=== PATIENT | female | born 1980 | race Caucasian/White ===

== ENCOUNTER 2016-10-06 10:03 | Inpatient (IN) | payer SELFPAY ==
[~2016-10-06] VITALS: Ht 160 cm; Wt 106.7 kg
[2016-10-06] MEDS ORDERED: ASPIRIN 325 MG TABLET PO ONE (10:30)
--- NOTE | 2016-10-06 10:38 | PHYS DOC ---
Past Medical History Past Medical History: Depression, Hypertension, Other Additional Past Medical Histor: ovarian cyst Past Surgical History: Cholecystectomy Alcohol Use: Rarely Drug Use: None Adult General Chief Complaint Chief Complaint: CHEST PAIN HPI HPI Patient is a 36 year old female presents to the emergency department with a history of being seen at [facility] for allergic reaction. Patient states that she developed midsternal chest pain with no radiation of pain. Patient states it is like a brick sitting on my chest. Patient states she has had nausea and vomiting. Patient continue to state she has a history of HTN does not take medication and does not have a doctor as she does not have insurance. Patient denies diaphoresis. Review of Systems Review of Systems Constitutional: Denies fever or chills [] Eyes: Denies change in visual acuity, redness, or eye pain [] HENT: Denies nasal congestion or sore throat [] Respiratory: Denies cough or shortness of breath [] Cardiovascular: No additional information not addressed in HPI [] GI: Denies abdominal pain, bloody stools or diarrhea. C/o nausea and vomiting : Denies dysuria or hematuria [] Musculoskeletal: Denies back pain or joint pain [] Integument: Denies rash or skin lesions [] Neurologic: Denies headache, focal weakness or sensory changes [] Endocrine: Denies polyuria or polydipsia [] Current Medications Current Medications Current Medications Medications (Trade) Dose Ordered Sig/Scarlet Start Time Stop Time Status Last Admin Dose Admin Aspirin (Jaelyn Aspirin) 325 mg 1X ONCE 10/06/16 10:30 10/06/16 10:31 DC 10/06/16 10:39 325 MG Info (Do NOT chart on this entry -- for MONITORING) 1 each PRN DAILY PRN 10/06/16 12:30 10/08/16 12:29 Iohexol (Omnipaque 300 Mg/ml) 75 ml 1X ONCE 10/06/16 12:30 10/06/16 12:31 DC 10/06/16 13:27 75 ML Morphine Sulfate 4 mg 1X ONCE 10/06/16 12:15 10/06/16 12:16 DC 10/06/16 13:11 4 MG Nitroglycerin (Nitrostat) 0.4 mg PRN Q5MIN PRN 10/06/16 10:30 10/06/16 10:56 0.4 MG Allergies Allergies Allergies Coded Allergies Type Severity Reaction Last Updated Verified tetanus and diphtheria toxoids Allergy Intermediate Swelling. 10/06/16 Yes Physical Exam Physical Exam Constitutional: Well developed, well nourished, no acute distress, non-toxic appearance. [] HENT: Normocephalic, atraumatic, bilateral external ears normal, oropharynx moist, no oral exudates, nose normal. [] Eyes: PERRLA, EOMI, conjunctiva normal, no discharge. [] Neck: Normal range of motion, no tenderness, supple, no stridor. [] Cardiovascular:Heart rate regular rhythm, no murmur [] Lungs & Thorax: Bilateral breath sounds clear to auscultation [] Abdomen: Bowel sounds normal, soft, no tenderness, no masses, no pulsatile masses. [] Skin: Warm, dry, no erythema, no rash. [] Back: No tenderness Extremities: No tenderness, no cyanosis, no clubbing, ROM intact, no edema. Peripheral pulses 2+ cap refill brisk < 2 seconds. Neurologic: Alert and oriented X 3, normal motor function, normal sensory function, no focal deficits noted. [] Psychologic: Affect normal, judgement normal, mood normal. [] Current Patient Data Vital Signs Vital Signs Date Time Temp Pulse Resp B/P (MAP) Pulse Ox O2 Delivery O2 Flow Rate FiO2 10/06/16 13:11 20 95 Room Air 10/06/16 10:56 118 142/73 10/06/16 10:05 98.1 98.1 Lab Values Laboratory Tests Test 10/06/16 10:13 10/06/16 10:15 10/06/16 12:05 White Blood Count 19.7 x10^3/uL (4.0-11.0) H Red Blood Count 4.76 x10^6/uL (3.50-5.40) Hemoglobin 14.6 g/dL (12.0-15.5) Hematocrit 42.1 % (36.0-47.0) Mean Corpuscular Volume 88 fL (79-100) Mean Corpuscular Hemoglobin 31 pg (25-35) Mean Corpuscular Hemoglobin Concent 35 g/dL (31-37) Red Cell Distribution Width 13.7 % (11.5-14.5) Platelet Count 434 x10^3/uL (140-400) H Neutrophils (%) (Auto) 80 % (31-73) H Lymphocytes (%) (Auto) 16 % (24-48) L Monocytes (%) (Auto) 4 % (0-9) Eosinophils (%) (Auto) 0 % (0-3) Basophils (%) (Auto) 0 % (0-3) Neutrophils # (Auto) 15.8 x10^3uL (1.8-7.7) H Lymphocytes # (Auto) 3.1 x10^3/uL (1.0-4.8) Monocytes # (Auto) 0.7 x10^3/uL (0.0-1.1) Eosinophils # (Auto) 0.0 x10^3/uL (0.0-0.7) Basophils # (Auto) 0.1 x10^3/uL (0.0-0.2) Segmented Neutrophils % 78 % (35-66) H Band Neutrophils % 2 % (0-9) Lymphocytes % 16 % (24-48) L Monocytes % 4 % (0-10) Toxic Granulation Slight Platelet Estimate Increased (ADEQUATE) Sodium Level 141 mmol/L (136-145) Potassium Level 3.6 mmol/L (3.5-5.1) Chloride Level 104 mmol/L (98-107) Carbon Dioxide Level 26 mmol/L (21-32) Anion Gap 11 (6-14) Blood Urea Nitrogen 15 mg/dL (7-20) Creatinine 0.9 mg/dL (0.6-1.0) Estimated GFR (Cockcroft-Gault) 71.7 BUN/Creatinine Ratio 17 (6-20) Glucose Level 149 mg/dL (70-99) H Calcium Level 9.3 mg/dL (8.5-10.1) Total Bilirubin 0.2 mg/dL (0.2-1.0) Aspartate Amino Transferase (AST) 15 U/L (15-37) Alanine Aminotransferase (ALT) 31 U/L (14-59) Alkaline Phosphatase 78 U/L (46-116) Troponin I Quantitative < 0.017 ng/mL (0.000-0.055) Total Protein 6.7 g/dL (6.4-8.2) Albumin 3.9 g/dL (3.4-5.0) Albumin/Globulin Ratio 1.4 (1.0-1.7) Serum Test, Qualitative Negative (NEG) D-Dimer (Yazmin) 2.20 ug/mlFEU (0.00-0.50) H POC Urine HCG, Qualitative Hcg negative (Negative) Laboratory Tests 10/06/16 10:13 Laboratory Tests 10/06/16 10:13 EKG EKG EKG completed at [address] noted no STEMI noted per Dr eDsir. [] Radiology/Procedures Radiology/Procedures [][facility] [address] [place] [address] IMAGING REPORT Signed PATIENT: DANISHA HOFFMAN ACCOUNT: [id number] : 1980 LOCATION: ER AGE: 36 SEX: F EXAM STATUS: REG ER ORD. PHYSICIAN: CORBY WEIR APRN REASON: mid sternal chest pressure PROCEDURE: PORTABLE CHEST 1V AP PORTABLE CHEST Clinical Indication: mid sternal chest pressure starting this a.m. Comparison: None. Findings: The cardiomediastinal silhouette is normal. Lungs are clear. There is no pneumothorax. No pleural effusion is appreciated. There is no acute bone abnormality. IMPRESSION: No acute cardiopulmonary process. DICTATED and SIGNED BY: BRUNILDA WHITTINGTON MD DATE: 10/06/16 1055 CC: CORBY WEIR APRN; NO PCP ~ Course & Med Decision Making Course & Med Decision Making Pertinent Labs and Imaging studies reviewed. (See chart for details) Patient's blood pressure was elevated she was provided with 3 nitroglycerin which has helped with her blood pressure and chest pain and discomfort. Patient later developed some increased chest pain and discomfort which she was provided with morphine. D-dimer was elevated at 2.2. CTA of the chest was completed which was negative per radiology. Chest x-ray was negative as well. Spoke with Dr. Desir in regards to CT resultspatient. Patient's MATEUSZ score is 0. [address] Delacruz in regards to admission for this patient into the hospital for chest pain. Spoke with him in regards to the elevated d-dimer and the negative CTA of the chest. Patient will be admitted to the telemetry unit with serial troponins completed consult to cardiology has also been placed. Patient was orders were placed to the computer. Patient isn't aware of admission into the hospital. [] Dragon Disclaimer Dragon Disclaimer This electronic medical record was generated, in whole or in part, using a voice recognition dictation system. Departure Departure Impression: Primary Impression: Chest pain Disposition: ADMITTED INPATIENT Admitting Physician: Claudia Delacruz Condition: STABLE Referrals: NO PCP (PCP) CORBY WEIR ANIMAL HUSBANDMAN Oct 06, 2016 10:38
[2016-10-06] MEDS: NITROGLYCERIN SUBLINGUAL 0.4 MG BOTTLE OF 25. SL PRN ×3 (10:39→10:56)
[2016-10-06 10:40] LABS: BASO # 0.1 x10^3/uL (0.0-0.2); BASO % 0 % (0-3); EOS % 0 % (0-3); HEMATOCRIT 42.1 % (36.0-47.0); HEMOGLOBIN 14.6 g/dL (12.0-15.5); LYMPH # 3.1 x10^3/uL (1.0-4.8); LYMPH % 16 % (24-48); MEAN CORPUSCULAR HEMOGLOBIN 31 pg (25-35); MEAN CORPUSCULAR HGB CONC 35 g/dL (31-37); MEAN CORPUSCULAR VOLUME 88 fL (79-100); MONO % 4 % (0-9); NEUT % 80 % (31-73); PLATELET COUNT 434 x10^3/uL (140-400); RED BLOOD COUNT 4.76 x10^6/uL (3.50-5.40); RED CELL DISTRIBUTION WIDTH 13.7 % (11.5-14.5); WHITE BLOOD COUNT 19.7 x10^3/uL (4.0-11.0)
[2016-10-06 10:58] LABS: CALCIUM 9.3 mg/dL (8.5-10.1); CREATININE 0.9 mg/dL (0.6-1.0); GFR 71.7
--- NOTE | 2016-10-06 10:58 | RAD ---
AP PORTABLE CHEST Clinical Indication: mid sternal chest pressure starting this a.m. Comparison: None. Findings: The cardiomediastinal silhouette is normal. Lungs are clear. There is no pneumothorax. No pleural effusion is appreciated. There is no acute bone abnormality. IMPRESSION: No acute cardiopulmonary process.
[2016-10-06 11:03] LABS: ALBUMIN 3.9 g/dL (3.4-5.0); ALBUMIN/GLOBULIN RATIO 1.4 (1.0-1.7); TOTAL BILIRUBIN 0.2 mg/dL (0.2-1.0); TOTAL PROTEIN 6.7 g/dL (6.4-8.2)
[2016-10-06 11:05] LABS: POTASSIUM 3.6 mmol/L (3.5-5.1)
[2016-10-06] MEDS ORDERED: MORPHINE SULFATE 4 MG/ML DISP.SYRIN. IV ONE (12:15)
--- NOTE | 2016-10-06 12:17 | EKG ---
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
[2016-10-06 12:23] LABS: PLT ESTIMATE INCREASED (ADEQUATE)
[2016-10-06 12:24] LABS: TOXIC GRANULATION SLIGHT
[2016-10-06] MEDS ORDERED: CONTRAST GIVEN MC PRN (12:30)
[2016-10-06] MEDS ORDERED: IOHEXOL 300 MG/ML 75 ML VIAL IV ONE (12:30)
[2016-10-06 12:56] LABS: NEG OBC SER NEG; POS OBC SER POS
--- NOTE | 2016-10-06 13:57 | RAD ---
PQRS Compliance Statement: One or more of the following individualized dose reduction techniques were utilized for this examination: 1. Automated exposure control 2. Adjustment of the mA and/or kV according to patient size 3. Use of iterative reconstruction technique CT CHEST WITH CONTRAST, PULMONARY ANGIOGRAM History: elevated d dimer, tachycardia, chest pain today. Comparison: None. Technique: Helical CT of the chest was performed after the administration of 75 cc of Omnipaque 300 intravenous contrast according to PE protocol. 3-D MIP coronal reconstruction was performed to better evaluate the pulmonary arteries. Findings: Pulmonary arteries are adequately opacified. There is no evidence of pulmonary embolism. Great vessels normal caliber. No thoracic aortic dissection. Cardiac size normal, no pericardial effusion. There appears to be wall thickening of the majority of the esophagus. The proximal esophagus is probably normal. Visualized thyroid is symmetric. There is no adenopathy in the chest. No pleural effusion. Central airways are patent. Partially calcified 10 mm nodule in the left lung apex is probably a granuloma. Lungs otherwise clear. There is fatty infiltration of the liver. Probable hepatomegaly. Cholecystectomy. 9 mm left adrenal nodule, attenuation measures 5 Hounsfield units, compatible with adenoma. No compression fracture in the thoracic spine. IMPRESSION: 1. There is no CT evidence of pulmonary embolus. 2. Majority of the esophagus is thick-walled. Correlate to any clinical evidence of esophagitis. 3. Fatty infiltration of the liver. 4. Small left adrenal adenoma.
--- NOTE | 2016-10-06 15:11 | HP ---
ADMIT DATE: 10/06/2016 CHIEF COMPLAINT: Chest pain. HISTORY OF PRESENT ILLNESS: The patient is a pleasant 36-year-old female who smokes. She is overweight. She has heart disease in her family. She presents with chest pain. Her initial cardiac workup was negative. Her D-dimer is a little high, but CAT scan of her chest was negative for PE. I have discussed the case with the nurse practitioner. We are going to go ahead and admit the patient and consult Cardiology. PAST MEDICAL HISTORY: Obesity, hypertension, and tobacco abuse. ALLERGIES: None. FAMILY HISTORY: Coronary artery disease. SOCIAL HISTORY: She smokes. 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 She does not drink or take drugs. MEDICATIONS: Reviewed. REVIEW OF SYSTEMS: GENERAL: No history of weight change, weakness, or fevers. SKIN: No bruising, hair changes, or rashes. EYES: No blurred, double, or loss of vision. NOSE AND THROAT: No history of nosebleeds, hoarseness, or sore throat. HEART: She complains of chest pain. LUNGS: Denies cough, hemoptysis, wheezing, or shortness of breath. GASTROINTESTINAL: Denies changes in appetite, nausea, vomiting, diarrhea, or constipation. GENITOURINARY: No history of frequency, urgency, hesitancy, or nocturia. NEUROLOGIC: Denies history of numbness, tingling, tremor, or weakness. PSYCHIATRIC: No history of panic, anxiety, or depression. ENDOCRINE: No history of heat or cold intolerance, polyuria, or polydipsia. EXTREMITIES: Denies muscle weakness, joint pain, pain on walking, or stiffness. PHYSICAL EXAMINATION: VITAL SIGNS: Temperature afebrile, pulse 98, respirations 18, and blood pressure 144/90. GENERAL: She is alert, cooperative. Her mother is present. HEART: Normal S1, S2. LUNGS: Clear. GASTROINTESTINAL: Abdomen is soft and obese. EXTREMITIES: Trace edema. SKIN: No rashes. PSYCHIATRIC: She is anxious. VASCULAR: Good capillary refill. ENDOCRINE: No thyromegaly. LYMPHATICS: No cervical nodes. HEMATOPOIETIC: No bruising. LABORATORY DATA: EKG shows sinus rhythm. Troponin is 0. ASSESSMENT AND PLAN: Chest pain, rule out coronary disease. The patient has been admitted. We will do cardiac monitoring, check serial enzymes, and serial EKGs. Consult Cardiology, daily aspirin. Resume home medicines. Suspect she may need a stress test. We will await Cardiology input. PROGNOSIS: Guarded. NOE JAIME DO DR: ROMAN/gerber JOB#: [id number] / [id number]
[2016-10-06 16:15] VITALS: BP 135/92
[2016-10-06] MEDS ORDERED: PRED50TA PO (17:09)
[2016-10-06] MEDS ORDERED: DIPH25CA58 PO (17:11)
[2016-10-06] MEDS: MORPHINE SULFATE 4 MG/ML DISP.SYRIN. IV PRN ×2 (17:14→19:29)
--- NOTE | 2016-10-06 17:31 | ACF ---
Admission Forms Criteria CARDIOLOGY GRG Clinical Indications for Admission to Inpatient Care ( Place 'X' for any and all applicable criteria): Hospital admission is needed for appropriate care of the patient because of ANY ONE of the following (1): [ ] I. Hemodynamic instability as indicated by ALL of the following (1)(2)(3) (4)(5) [ ]a) Vital signs or other findings not as expected for chronic patient condition or baseline [ ]b) Instability indicated by ANY ONE of the following: [ ]i) Hypotension [ ]ii) Symptomatic Tachycardia unresponsive to treatment ( e.g., analgesia, fluids, sedation as indicated) [ ]iii) Inadequate perfusion indicated by ANY ONE of the following: [ ] 1) Lactic acidosis (> 2 mmol/L) [ ] 2) New abnormal capillary refill (> 3 seconds) [ ] 3) Reduced urine output [ ] 4) New altered mental status [ ]iv) Orthostatic vital sign changes unresponsive to treatment (e.g., fluids) [ ]v) IV inotropic or vasopressor medication required to maintain adequate blood pressure or perfusion [ ] II. Severe heart failure as indicated by ANY ONE of the following(17)(18) [ ]a) Respiratory distress [ ]b) Hypotension [ ]c) Anasarca (refractory to outpatient therapy) [ ]d) Cardiac arrhythmias of immediate concern [ ]e) Myocardial ischemia [ ] III. Cardiac arrhythmias or findings of immediate concern indicated by ANY ONE of the following (19)(20): [ ] a) Heart rhythms that are inherently dangerous or unstable indicated by ANY ONE of the following (21)(22)(23): [ ] i) Resuscitated ventricular fibrillation or cardiac arrest [ ] ii) Ventricular escape rhythm [ ] iii) Sustained ventricular tachycardia (30 seconds or more of ventricular rhythm at greater than 100 beats per minute) [ ] iv) Nonsustained ventricular tachycardia and ANY ONE of the following: [ ] 1) Suspected cardiac ischemia as cause or consequence of ventricular tachycardia [ ] 2) In setting of acute myocarditis [ ] b) Unstable cardiac conduction defects indicated by ANY ONE of the following(23)(24)(25) [ ] i) Type II second-degree atrioventricular block [ ]ii) Third-degree atrioventricular block [ ]iii) New-onset left bundle branch block with suspected myocardial ischemia [ ]c) Any heart rhythm and ANY ONE of the following (21)(22)(26)(27) (28) [ ] i) Continuous long-term ECG monitoring needed (e.g., initiation of drug requiring monitoring for more than 24 hours) [ ] ii) Patient has automatic implanted cardioverter defibrillator that is repeatedly firing, malfunctioning, or in need of immediate adjustment of settings beyond the scope of ambulatory or observation care [ ]d) Heart rhythms of concern due to ANY ONE of the following: [ ] i) Hypotension [ ] ii) Respiratory distress [ ] iii) Association with other significant symptoms (e.g., bradycardia with syncope or ongoing dizziness, supraventricular tachycardia with chest pain (14)(15)(17) [ ] IV. Monitoring for cardiac contusion beyond the scope of observation care needed [A](30)(31)(32) [ ] V. Surgical or device complication (e.g., valve replacement complication , pacemaker dysfunction) (35)(41)(44)(45)(46) [ ] . Inpatient palliative care needed. [B](49) Also use Inpatient Palliative Care Criteria [ ] VII. Nonbacterial thrombotic (marantic) endocarditis (36)(43)(47)(48) [X] VIII. Cardiology condition, symptom, or finding for which emergency and observation care has failed or are not considered appropriate. [ ] IX. Acute valvular disease requiring inpatient as indicated by ANY ONE of the following (41) [ ]a) Acute valvular regurgitation (42) [ ]b) Noninfectious valvulitis (43) [ ]c) Obstructive valve thrombosis [ ]d) Paravalvular leak [ ]e) Other significant valvular disorder remaining after emergency or observation level of care (as appropriate) [ ]X. Pericardial disease requiring inpatient treatment as indicated by ANY ONE of the following (33)(34)(35)(36)(37) [ ]a) Suspected tamponade (38)(39)(40) [ ]b) Hemopericardium [ ]c) Other significant pericardial disorder remaining after emergency or observation level of care (as appropriate) [ ] XI. Cardiac ischemia beyond scope of emergency and observation care. [ ] XII. Hypertension requiring inpatient treatment as indicated by ANY ONE of the following (6)(7)(8) [ ]a) SBP greater than 220 mm Hg or DBP greater than 120 mmHg despite treatment [ ]b) SBP greater than 140 mm Hg or DBP greater than 100 mm Hg with evidence of acute end organ damage as indicated by ANY ONE of the following [ ] i) Encephalopathy [ ] ii) Acute renal failure as indicated by new onset of ANY ONE of the following (9)(10)(11)(12)(13) [ ]1) 3-fold rise in serum creatinine from baseline [ ]2) Serum creatinine greater than 4 mg/dL ( 354 micromoles/L) with acute rise greater than 0.5 mg/dL (44.2 micromoles/L) [ ]3) Reduction of more than 75% in estimated glomerular filtration rate from baseline [ ]4) Estimated glomerular filtration rate less than 35 mL/min/1.73m2 (0.59 mL/sec/1.73m2) in child up to 18 years of age [ ]5) Cessation of urine output indicated by ALL of the following [ ]A. Adequate volume status [ ]B. Inadequate urine output as indicated by ANY ONE of the following [ ]a. Urine output less than 0.3 mL/kg/hr for 24 hours [ ]b. Anuria (urine output less than 0.1 mL/kg/hr) for 12 hours [ ] iii) Aortic dissection [ ] iv) Myocardial Ischemia [ ] v) Left ventricular heart failure [ ]vi) Retinal Hemorrhage [ ]vii) Other significant finding [ ]c) Hypertension in child requiring inpatient treatment as indicated by ALL of the following(14)(15)(16) [ ] i) Outpatient treatment not effective, not available, or not appropriate [ ]ii) SBP or DBP greater than 95th percentile for age [ ]iii) Evidence of acute end organ damage as indicated by ANY ONE of the following [ ]1) Altered mental status [ ]2) Acute renal failure as indicated by new onset of ANY ONE of the following(9)(10)(11)(12)(13) [ ]A. 3-fold rise in serum creatinine from baseline [ ]B. Serum creatinine greater than 4 mg/dL (354 micromoles/L) with acute rise greater than 0.5 mg/dL (44.2 micromoles/L) [ ]C. Reduction of more than 75% in estimated glomerular filtration rate from baseline [ ]D. Estimated glomerular filtration rate less than 35 mL/min/1.73m2 (0.59 mL/sec/1.73m2) in child up to 18 years of age [ ]E. Cessation of urine output indicated by ALL of the following [ ]a. Adequate volume status [ ]b. Inadequate urine output as indicated by ANY ONE of the following [ ]i) Urine output less than 0.3 mL/kg/hr for 24 hours [ ]ii) Anuria ( urine output less than 0.1 mL/kg/hr) for 12 hours [ ]3) Severe headache [ ]4) Visual disturbance [ ]5) Retinal hemorrhage [ ]6) Other significant finding [ ]XIII. Complications of transplanted heart indicated by ANY ONE of the following(61): [ ]a) Acute graft rejection requiring inpatient management (eg, intravenous immunosuppression)(62)(63) [ ]b) Acute graft heart failure indicated by ANY ONE of the following(64): [ ]i) Hemodynamic instability [ ]ii) Cardiac arrhythmias of immediate concern [ ]iii) Pulmonary edema that is very severe (eg, mechanical ventilation needed, imminent or likely, need for 100% oxygen to keep oxygen saturation above 90%) [ ]iv) Pulmonary edema that is persistent as indicated by ALL of the following: [ ]1) New need for oxygen therapy to keep oxygen saturation above 90% (or increased FiO2 need from baseline) [ ]2) Has not improved sufficiently with emergency department or observation care IV diuretics or other heart failure treatments[E] [ ]v) Altered mental status that is severe or persistent [ ]vi) Increased creatinine (new on laboratory test) with reduction of more than 50% in estimated glomerular filtration rate from baseline [ ]vii) Progressively (ongoing) rising creatinine (known from past laboratory test) with reduction of more than 25% in estimated glomerular filtration rate from baseline [ ]viii) Acute renal failure [ ]ix) Acute peripheral ischemia (eg, examination shows pulseless, cool, mottled, or cyanotic extremity) [ ]x) Pulmonary artery catheter monitoring needed [ ]xi) Other sign or symptom of heart failure requiring inpatient treatment (ie, too severe or not responsive to outpatient and observation care treatment) [ ]c) Infection requiring inpatient management (eg, Hemodynamic instability, need for intravenous antimicrobial treatment)(66)(67)(68)(69)(70) [ ]d) Cardiac allograft vasculopathy requiring inpatient management ( eg evidence of cardiac ischemia)(71) [ ]e) Other complication of transplanted heart (eg, stroke, severe pulmonary hypertension, severe valvular dysfunction) requiring inpatient management(72) The original [facility] content created by [facility] has been revised. The portions of the content which have been revised are identified through the use of italic text or in bold, and [facility] has neither reviewed nor approved the modified material. All other unmodified content is copyright [facility]. Please see references footnoted in the original [facility] edition 2016 Admission Criteria Met?: Yes ANANYA IWLLIS Oct 06, 2016 17:31
[2016-10-06] MEDS ORDERED: diphenhydrAMINE HCL 25 MG CAPSULE PO PRN (18:45)
[2016-10-06 19:00] VITALS: BP 113/56
[2016-10-06] MEDS: ONDANSETRON PF 4 MG/2 ML VIAL. IV PRN (19:35)
[2016-10-06 23:00] VITALS: BP 110/52
[2016-10-07 03:00] VITALS: BP 106/55
[2016-10-07] MEDS: MORPHINE SULFATE 4 MG/ML DISP.SYRIN. IV PRN ×3 (03:00→23:30)
[2016-10-07 03:34] LABS: BASO # 0.1 x10^3/uL (0.0-0.2); BASO % 0 % (0-3); EOS % 0 % (0-3); HEMATOCRIT 47.6 % (36.0-47.0); HEMOGLOBIN 15.7 g/dL (12.0-15.5); LYMPH # 2.2 x10^3/uL (1.0-4.8); LYMPH % 14 % (24-48); MEAN CORPUSCULAR HEMOGLOBIN 30 pg (25-35); MEAN CORPUSCULAR HGB CONC 33 g/dL (31-37); MEAN CORPUSCULAR VOLUME 91 fL (79-100); MONO % 2 % (0-9); NEUT % 84 % (31-73); PLATELET COUNT 501 x10^3/uL (140-400); RED BLOOD COUNT 5.25 x10^6/uL (3.50-5.40); RED CELL DISTRIBUTION WIDTH 14.1 % (11.5-14.5); WHITE BLOOD COUNT 16.3 x10^3/uL (4.0-11.0)
[2016-10-07 03:46] LABS: CALCIUM 8.6 mg/dL (8.5-10.1); CREATININE 0.9 mg/dL (0.6-1.0); GFR 71.7; POTASSIUM 4.6 mmol/L (3.5-5.1)
[2016-10-07 04:58] LABS: CHOLESTEROL/HDL RATIO 5.2
[2016-10-07 07:00] VITALS: BP 113/52
[2016-10-07] MEDS ORDERED: LIDO:MAALOX:DONNATAL 1:1:1 15 ML SINGLE DOSE SWSW ONE (08:45)
[2016-10-07] MEDS ORDERED: predniSONE 20 MG TABLET PO SCH (09:00)
[2016-10-07] MEDS: ONDANSETRON PF 4 MG/2 ML VIAL. IV PRN ×2 (09:26→16:00)
--- NOTE | 2016-10-07 09:35 | PDOC ---
PROGRESS NOTES Chief Complaint Chief Complaint 1. Chest pain, non cardiac ,likely GI related 2. Esophagitis on CT 3. Fatty liver 4. INcidental left small adrenal adenoma 5. Morbid Obesity BMI 41 6. Recent anaphylaxis (lip swelling and hives), hence on pred History of Present Illness History of Present Illness Threw up atfer GI cocktail MIdsternal CP persists, non reproducible by palpation VS: sinus tachy (1teens), BP ok, D dimer 2 - CTA neg for PE CARdiac enzymes and EKG ok CT I have personally reviewed, esophagitis, adrenal adenoma and fatty liver Pt denies hx of chronic vomiting Actually says no for reflux sxs PLAN: I would consult GI Agree with RN suggestion to Hold PRed PO for now - allergic rxn seems under control and can exacerbate cause abdominal upset COnt PO benadryl for now prn Check TSH for sinus tachy Vitals Vitals Vital Signs Date Time Temp Pulse Resp B/P (MAP) Pulse Ox O2 Delivery O2 Flow Rate FiO2 10/07/16 08:00 Room Air 10/07/16 07:00 98.3 111 19 113/52 (72) 98 98.3 Physical Exam General: Alert, Oriented X3, Cooperative, No acute distress Heart: Regular rate, Normal S1, Normal S2, No murmurs Lungs: Clear Abdomen: Normal bowel sounds, Soft, No tenderness Extremities: No clubbing, No cyanosis, No edema Skin: No rashes, No breakdown, No significant lesion Labs LABS Laboratory Tests Test 10/06/16 10:13 10/06/16 10:15 10/06/16 12:05 10/06/16 20:40 White Blood Count 19.7 x10^3/uL (4.0-11.0) Red Blood Count 4.76 x10^6/uL (3.50-5.40) Hemoglobin 14.6 g/dL (12.0-15.5) Hematocrit 42.1 % (36.0-47.0) Mean Corpuscular Volume 88 fL (79-100) Mean Corpuscular Hemoglobin 31 pg (25-35) Mean Corpuscular Hemoglobin Concent 35 g/dL (31-37) Red Cell Distribution Width 13.7 % (11.5-14.5) Platelet Count 434 x10^3/uL (140-400) Neutrophils (%) (Auto) 80 % (31-73) Lymphocytes (%) (Auto) 16 % (24-48) Monocytes (%) (Auto) 4 % (0-9) Eosinophils (%) (Auto) 0 % (0-3) Basophils (%) (Auto) 0 % (0-3) Neutrophils # (Auto) 15.8 x10^3uL (1.8-7.7) Lymphocytes # (Auto) 3.1 x10^3/uL (1.0-4.8) Monocytes # (Auto) 0.7 x10^3/uL (0.0-1.1) Eosinophils # (Auto) 0.0 x10^3/uL (0.0-0.7) Basophils # (Auto) 0.1 x10^3/uL (0.0-0.2) Segmented Neutrophils % 78 % (35-66) Band Neutrophils % 2 % (0-9) Lymphocytes % 16 % (24-48) Monocytes % 4 % (0-10) Toxic Granulation Slight Platelet Estimate Increased (ADEQUATE) Sodium Level 141 mmol/L (136-145) Potassium Level 3.6 mmol/L (3.5-5.1) Chloride Level 104 mmol/L (98-107) Carbon Dioxide Level 26 mmol/L (21-32) Anion Gap 11 (6-14) Blood Urea Nitrogen 15 mg/dL (7-20) Creatinine 0.9 mg/dL (0.6-1.0) Estimated GFR (Cockcroft-Gault) 71.7 BUN/Creatinine Ratio 17 (6-20) Glucose Level 149 mg/dL (70-99) Calcium Level 9.3 mg/dL (8.5-10.1) Total Bilirubin 0.2 mg/dL (0.2-1.0) Aspartate Amino Transf (AST/SGOT) 15 U/L (15-37) Alanine Aminotransferase (ALT/SGPT) 31 U/L (14-59) Alkaline Phosphatase 78 U/L (46-116) Troponin I Quantitative < 0.017 ng/mL (0.000-0.055) < 0.017 ng/mL (0.000-0.055) Total Protein 6.7 g/dL (6.4-8.2) Albumin 3.9 g/dL (3.4-5.0) Albumin/Globulin Ratio 1.4 (1.0-1.7) Serum Test, Qualitative Negative (NEG) D-Dimer (Yazmin) 2.20 ug/mlFEU (0.00-0.50) Bedside Urine HCG, Qualitative Hcg negative (Negative) Test 10/07/16 02:50 White Blood Count 16.3 x10^3/uL (4.0-11.0) Red Blood Count 5.25 x10^6/uL (3.50-5.40) Hemoglobin 15.7 g/dL (12.0-15.5) Hematocrit 47.6 % (36.0-47.0) Mean Corpuscular Volume 91 fL (79-100) Mean Corpuscular Hemoglobin 30 pg (25-35) Mean Corpuscular Hemoglobin Concent 33 g/dL (31-37) Red Cell Distribution Width 14.1 % (11.5-14.5) Platelet Count 501 x10^3/uL (140-400) Neutrophils (%) (Auto) 84 % (31-73) Lymphocytes (%) (Auto) 14 % (24-48) Monocytes (%) (Auto) 2 % (0-9) Eosinophils (%) (Auto) 0 % (0-3) Basophils (%) (Auto) 0 % (0-3) Neutrophils # (Auto) 13.7 x10^3uL (1.8-7.7) Lymphocytes # (Auto) 2.2 x10^3/uL (1.0-4.8) Monocytes # (Auto) 0.3 x10^3/uL (0.0-1.1) Eosinophils # (Auto) 0.0 x10^3/uL (0.0-0.7) Basophils # (Auto) 0.1 x10^3/uL (0.0-0.2) Sodium Level 137 mmol/L (136-145) Potassium Level 4.6 mmol/L (3.5-5.1) Chloride Level 101 mmol/L (98-107) Carbon Dioxide Level 24 mmol/L (21-32) Anion Gap 12 (6-14) Blood Urea Nitrogen 19 mg/dL (7-20) Creatinine 0.9 mg/dL (0.6-1.0) Estimated GFR (Cockcroft-Gault) 71.7 Glucose Level 156 mg/dL (70-99) Calcium Level 8.6 mg/dL (8.5-10.1) Troponin I Quantitative < 0.017 ng/mL (0.000-0.055) Triglycerides Level 121 mg/dL (0-150) Cholesterol Level 162 mg/dL (0-200) LDL Cholesterol, Calculated 107 mg/dL (0-100) VLDL Cholesterol, Calculated 24 mg/dL (0-40) Non-HDL Cholesterol Calculated 131 mg/dL (0-129) HDL Cholesterol 31 mg/dL (40-60) Cholesterol/HDL Ratio 5.2 Thyroid Stimulating Hormone (TSH) 1.829 uIU/mL (0.358-3.74) Review of Systems Review of Systems chest apin, nausea, emesis, all else is neg 14 pt reviewed Assessment and Plan Assessmemt and Plan Problems Medical Problems: (1) Chest pain Status: Acute Problems: Comment Review of Relevant I have reviewed the following items hetal (where applicable) has been applied. Labs Laboratory Tests Test 10/06/16 10:13 10/06/16 10:15 10/06/16 12:05 10/06/16 20:40 White Blood Count 19.7 x10^3/uL (4.0-11.0) Red Blood Count 4.76 x10^6/uL (3.50-5.40) Hemoglobin 14.6 g/dL (12.0-15.5) Hematocrit 42.1 % (36.0-47.0) Mean Corpuscular Volume 88 fL (79-100) Mean Corpuscular Hemoglobin 31 pg (25-35) Mean Corpuscular Hemoglobin Concent 35 g/dL (31-37) Red Cell Distribution Width 13.7 % (11.5-14.5) Platelet Count 434 x10^3/uL (140-400) Neutrophils (%) (Auto) 80 % (31-73) Lymphocytes (%) (Auto) 16 % (24-48) Monocytes (%) (Auto) 4 % (0-9) Eosinophils (%) (Auto) 0 % (0-3) Basophils (%) (Auto) 0 % (0-3) Neutrophils # (Auto) 15.8 x10^3uL (1.8-7.7) Lymphocytes # (Auto) 3.1 x10^3/uL (1.0-4.8) Monocytes # (Auto) 0.7 x10^3/uL (0.0-1.1) Eosinophils # (Auto) 0.0 x10^3/uL (0.0-0.7) Basophils # (Auto) 0.1 x10^3/uL (0.0-0.2) Segmented Neutrophils % 78 % (35-66) Band Neutrophils % 2 % (0-9) Lymphocytes % 16 % (24-48) Monocytes % 4 % (0-10) Toxic Granulation Slight Platelet Estimate Increased (ADEQUATE) Sodium Level 141 mmol/L (136-145) Potassium Level 3.6 mmol/L (3.5-5.1) Chloride Level 104 mmol/L (98-107) Carbon Dioxide Level 26 mmol/L (21-32) Anion Gap 11 (6-14) Blood Urea Nitrogen 15 mg/dL (7-20) Creatinine 0.9 mg/dL (0.6-1.0) Estimated GFR (Cockcroft-Gault) 71.7 BUN/Creatinine Ratio 17 (6-20) Glucose Level 149 mg/dL (70-99) Calcium Level 9.3 mg/dL (8.5-10.1) Total Bilirubin 0.2 mg/dL (0.2-1.0) Aspartate Amino Transf (AST/SGOT) 15 U/L (15-37) Alanine Aminotransferase (ALT/SGPT) 31 U/L (14-59) Alkaline Phosphatase 78 U/L (46-116) Troponin I Quantitative < 0.017 ng/mL (0.000-0.055) < 0.017 ng/mL (0.000-0.055) Total Protein 6.7 g/dL (6.4-8.2) Albumin 3.9 g/dL (3.4-5.0) Albumin/Globulin Ratio 1.4 (1.0-1.7) Serum Test, Qualitative Negative (NEG) D-Dimer (Yazmin) 2.20 ug/mlFEU (0.00-0.50) Bedside Urine HCG, Qualitative Hcg negative (Negative) Test 10/07/16 02:50 White Blood Count 16.3 x10^3/uL (4.0-11.0) Red Blood Count 5.25 x10^6/uL (3.50-5.40) Hemoglobin 15.7 g/dL (12.0-15.5) Hematocrit 47.6 % (36.0-47.0) Mean Corpuscular Volume 91 fL (79-100) Mean Corpuscular Hemoglobin 30 pg (25-35) Mean Corpuscular Hemoglobin Concent 33 g/dL (31-37) Red Cell Distribution Width 14.1 % (11.5-14.5) Platelet Count 501 x10^3/uL (140-400) Neutrophils (%) (Auto) 84 % (31-73) Lymphocytes (%) (Auto) 14 % (24-48) Monocytes (%) (Auto) 2 % (0-9) Eosinophils (%) (Auto) 0 % (0-3) Basophils (%) (Auto) 0 % (0-3) Neutrophils # (Auto) 13.7 x10^3uL (1.8-7.7) Lymphocytes # (Auto) 2.2 x10^3/uL (1.0-4.8) Monocytes # (Auto) 0.3 x10^3/uL (0.0-1.1) Eosinophils # (Auto) 0.0 x10^3/uL (0.0-0.7) Basophils # (Auto) 0.1 x10^3/uL (0.0-0.2) Sodium Level 137 mmol/L (136-145) Potassium Level 4.6 mmol/L (3.5-5.1) Chloride Level 101 mmol/L (98-107) Carbon Dioxide Level 24 mmol/L (21-32) Anion Gap 12 (6-14) Blood Urea Nitrogen 19 mg/dL (7-20) Creatinine 0.9 mg/dL (0.6-1.0) Estimated GFR (Cockcroft-Gault) 71.7 Glucose Level 156 mg/dL (70-99) Calcium Level 8.6 mg/dL (8.5-10.1) Troponin I Quantitative < 0.017 ng/mL (0.000-0.055) Triglycerides Level 121 mg/dL (0-150) Cholesterol Level 162 mg/dL (0-200) LDL Cholesterol, Calculated 107 mg/dL (0-100) VLDL Cholesterol, Calculated 24 mg/dL (0-40) Non-HDL Cholesterol Calculated 131 mg/dL (0-129) HDL Cholesterol 31 mg/dL (40-60) Cholesterol/HDL Ratio 5.2 Thyroid Stimulating Hormone (TSH) 1.829 uIU/mL (0.358-3.74) Laboratory Tests Test 10/06/16 10:13 10/06/16 10:15 10/06/16 12:05 10/06/16 20:40 White Blood Count 19.7 x10^3/uL (4.0-11.0) Red Blood Count 4.76 x10^6/uL (3.50-5.40) Hemoglobin 14.6 g/dL (12.0-15.5) Hematocrit 42.1 % (36.0-47.0) Mean Corpuscular Volume 88 fL (79-100) Mean Corpuscular Hemoglobin 31 pg (25-35) Mean Corpuscular Hemoglobin Concent 35 g/dL (31-37) Red Cell Distribution Width 13.7 % (11.5-14.5) Platelet Count 434 x10^3/uL (140-400) Neutrophils (%) (Auto) 80 % (31-73) Lymphocytes (%) (Auto) 16 % (24-48) Monocytes (%) (Auto) 4 % (0-9) Eosinophils (%) (Auto) 0 % (0-3) Basophils (%) (Auto) 0 % (0-3) Neutrophils # (Auto) 15.8 x10^3uL (1.8-7.7) Lymphocytes # (Auto) 3.1 x10^3/uL (1.0-4.8) Monocytes # (Auto) 0.7 x10^3/uL (0.0-1.1) Eosinophils # (Auto) 0.0 x10^3/uL (0.0-0.7) Basophils # (Auto) 0.1 x10^3/uL (0.0-0.2) Segmented Neutrophils % 78 % (35-66) Band Neutrophils % 2 % (0-9) Lymphocytes % 16 % (24-48) Monocytes % 4 % (0-10) Toxic Granulation Slight Platelet Estimate Increased (ADEQUATE) Sodium Level 141 mmol/L (136-145) Potassium Level 3.6 mmol/L (3.5-5.1) Chloride Level 104 mmol/L (98-107) Carbon Dioxide Level 26 mmol/L (21-32) Anion Gap 11 (6-14) Blood Urea Nitrogen 15 mg/dL (7-20) Creatinine 0.9 mg/dL (0.6-1.0) Estimated GFR (Cockcroft-Gault) 71.7 BUN/Creatinine Ratio 17 (6-20) Glucose Level 149 mg/dL (70-99) Calcium Level 9.3 mg/dL (8.5-10.1) Total Bilirubin 0.2 mg/dL (0.2-1.0) Aspartate Amino Transf (AST/SGOT) 15 U/L (15-37) Alanine Aminotransferase (ALT/SGPT) 31 U/L (14-59) Alkaline Phosphatase 78 U/L (46-116) Troponin I Quantitative < 0.017 ng/mL (0.000-0.055) < 0.017 ng/mL (0.000-0.055) Total Protein 6.7 g/dL (6.4-8.2) Albumin 3.9 g/dL (3.4-5.0) Albumin/Globulin Ratio 1.4 (1.0-1.7) Serum Test, Qualitative Negative (NEG) D-Dimer (Yazmin) 2.20 ug/mlFEU (0.00-0.50) Bedside Urine HCG, Qualitative Hcg negative (Negative) Test 10/07/16 02:50 White Blood Count 16.3 x10^3/uL (4.0-11.0) Red Blood Count 5.25 x10^6/uL (3.50-5.40) Hemoglobin 15.7 g/dL (12.0-15.5) Hematocrit 47.6 % (36.0-47.0) Mean Corpuscular Volume 91 fL (79-100) Mean Corpuscular Hemoglobin 30 pg (25-35) Mean Corpuscular Hemoglobin Concent 33 g/dL (31-37) Red Cell Distribution Width 14.1 % (11.5-14.5) Platelet Count 501 x10^3/uL (140-400) Neutrophils (%) (Auto) 84 % (31-73) Lymphocytes (%) (Auto) 14 % (24-48) Monocytes (%) (Auto) 2 % (0-9) Eosinophils (%) (Auto) 0 % (0-3) Basophils (%) (Auto) 0 % (0-3) Neutrophils # (Auto) 13.7 x10^3uL (1.8-7.7) Lymphocytes # (Auto) 2.2 x10^3/uL (1.0-4.8) Monocytes # (Auto) 0.3 x10^3/uL (0.0-1.1) Eosinophils # (Auto) 0.0 x10^3/uL (0.0-0.7) Basophils # (Auto) 0.1 x10^3/uL (0.0-0.2) Sodium Level 137 mmol/L (136-145) Potassium Level 4.6 mmol/L (3.5-5.1) Chloride Level 101 mmol/L (98-107) Carbon Dioxide Level 24 mmol/L (21-32) Anion Gap 12 (6-14) Blood Urea Nitrogen 19 mg/dL (7-20) Creatinine 0.9 mg/dL (0.6-1.0) Estimated GFR (Cockcroft-Gault) 71.7 Glucose Level 156 mg/dL (70-99) Calcium Level 8.6 mg/dL (8.5-10.1) Troponin I Quantitative < 0.017 ng/mL (0.000-0.055) Triglycerides Level 121 mg/dL (0-150) Cholesterol Level 162 mg/dL (0-200) LDL Cholesterol, Calculated 107 mg/dL (0-100) VLDL Cholesterol, Calculated 24 mg/dL (0-40) Non-HDL Cholesterol Calculated 131 mg/dL (0-129) HDL Cholesterol 31 mg/dL (40-60) Cholesterol/HDL Ratio 5.2 Thyroid Stimulating Hormone (TSH) 1.829 uIU/mL (0.358-3.74) Medications Current Medications Aspirin (Jaelyn Aspirin) 325 mg 1X ONCE PO Last administered on 10/06/16 10:39 ; Start 10/06/16 at 10:30; Stop 10/06/16 at 10:31; Status DC Nitroglycerin (Nitrostat) 0.4 mg PRN Q5MIN PRN SL CHEST PAIN Last administered on 10/06/16 10:56; Start 10/06/16 at 10:30 Morphine Sulfate 4 mg 1X ONCE IV Last administered on 10/06/16 13:11; Start 10/06/16 at 12:15; Stop 10/06/16 at 12:16; Status DC Iohexol (Omnipaque 300 Mg/ml) 75 ml 1X ONCE IV Last administered on 10/06/16 13:27; Start 10/06/16 at 12:30; Stop 10/06/16 at 12:31; Status DC Info (Do NOT chart on this entry -- for MONITORING) 1 each PRN DAILY PRN MC SEE COMMENTS; Start 10/06/16 at 12:30; Stop 10/08/16 at 12:29 Morphine Sulfate 4 mg PRN Q2HR PRN IV PAIN Last administered on 10/07/16 03:00 ; Start 10/06/16 at 14:45; Stop 10/07/16 at 14:44 Ondansetron HCl (Zofran) 4 mg PRN Q6HRS PRN IV NAUSEA/VOMITING Last administered on 10/07/16 09:26; Start 10/06/16 at 18:45 Diphenhydramine HCl (Benadryl) 50 mg PRN Q6HRS PRN PO ALLERGIES; Start at 18:45 Prednisone (Prednisone) 50 mg DAILY PO ; Start 10/07/16 at 09:00 Multi-Ingredient Mouthwash/Gargle (Gi Cocktail Single Dose) 15 ml 1X ONCE SWSW Last administered on 10/07/16 09:03; Start 10/07/16 at 08:45; Stop 10/07/16 at 08:46; Status DC Active Scripts Active Reported Benadryl (Diphenhydramine Hcl) 25 Mg Capsule 2 Cap PO Q4-6HRS PRN Prednisone 50 Mg Tablet 1 Tab PO DAILY Vitals/I & O Vital Sign - Last 24 Hours 10/06/16 10/06/16 10/06/16 10/06/16 10:05 10:37 10:39 10:45 Temp 98.1 98.1 Pulse 116 110 109 120 Resp 18 22 B/P (MAP) 147/106 (120) 153/94 (113) 153/94 149/86 Pulse Ox 92 95 O2 Delivery Room Air Room Air 10/06/16 10/06/16 10/06/16 10/06/16 10:56 11:07 11:37 12:37 Pulse 118 116 116 118 Resp 20 20 20 B/P (MAP) 142/73 146/77 (100) 180/99 (126) 133/71 (91) Pulse Ox 96 94 94 O2 Delivery Room Air Room Air Room Air 10/06/16 10/06/16 10/06/16 10/06/16 13:11 13:37 14:37 15:30 Pulse 114 110 99 Resp 20 20 20 20 B/P (MAP) 128/71 (90) 127/75 (92) 108/57 (74) Pulse Ox 95 95 94 95 O2 Delivery Room Air Room Air Room Air Room Air 10/06/16 10/06/16 10/06/16 10/06/16 16:15 17:00 17:14 17:45 Temp 96.5 96.5 Pulse 92 Resp 20 18 18 B/P (MAP) 135/92 (106) Pulse Ox 99 99 O2 Delivery Room Air Room Air Room Air 10/06/16 10/06/16 10/06/16 10/06/16 19:00 19:29 20:00 23:00 Temp 98.0 98.0 98.0 98.0 Pulse 117 120 Resp 24 20 B/P (MAP) 113/56 (75) 110/52 (71) Pulse Ox 98 99 98 O2 Delivery Room Air Room Air Room Air Room Air 10/07/16 10/07/16 10/07/16 10/07/16 03:00 03:00 03:30 07:00 Temp 98.2 98.3 98.2 98.3 Pulse 121 111 Resp 18 19 B/P (MAP) 106/55 (72) 113/52 (72) Pulse Ox 98 98 98 98 O2 Delivery Room Air Room Air Room Air Room Air 10/07/16 08:00 O2 Delivery Room Air Intake and Output 10/06/16 10/06/16 10/07/16 14:59 22:59 06:59 Intake Total 550 ml 300 ml Balance 550 ml 300 ml GUSTAVO FLORES MD Oct 07, 2016 09:35
--- NOTE | 2016-10-07 10:32 | PDOC2 ---
CARDIAC CONSULT DATE OF CONSULT Date of Consult DATE: 10/07/16 TIME: 10:24 REASON FOR CONSULT Reason for Consult: Chest pain, elevated ddimer REFERRING PHYSICIAN Referring Physician: Kenji SOURCE Source: Chart review, Patient HISTORY OF PRESENT ILLNESS HISTORY OF PRESENT ILLNESS This is a pleasant 36 yo female admitted for complains of chest pain. Reports that Friday she was at [facility] due to swollen lips and hives, welts to her body. Mother at the bedside and told that she used a new laundry soap otherwise no new medications or anything that may have trigerred this event. She was sent home with prednisone and benadryl. Reports that yesterday morning while at work at around 6 AM, she started feeling like there was some bricks on her chest. This was nonradiating and has been consistent waxing and waning throughout the day prompting her to come to ED. She was slightly nauseated with some mild SOA but no palpitations, dizziness. Denies any RUIZ and she does not practice any routine exercise. She is positive for PCOS, but no CAD, VTE, no recent falls or injury. Verbalized may mildly depressed given that her gradma and grandpa just past away 03/2016 and 07/2016 respectiviely. Denies any energy drinks. She does smoke tobacco but no recreational drug use. No childhood heart disease. Accdg to CT she has thickening on her esophagus but negative for PE. She was given GI cocktail which got better a little bit accdg to staff but she vomited again. PAST MEDICAL HISTORY Past Medical History Recent possible angioedema/urticaria, PCOS. PAST SURGICAL HISTORY Past Surgical History: Cholecystectomy FAMILY HISTORY Family History: Coronary Artery Disease (uncle in his 40s), Other (AFIB grandmother) SOCIAL HISTORY Smoke: <1 pack per day (16 yrs) ALCOHOL: none Drugs: None Lives: with Family CURRENT MEDICATIONS CURRENT MEDICATIONS Current Medications Medications (Trade) Dose Ordered Sig/Scarlet Route PRN Reason Start Time Stop Time Status Last Admin Dose Admin Aspirin (Jaelyn Aspirin) 325 mg 1X ONCE PO 10/06/16 10:30 10/06/16 10:31 DC 10/06/16 10:39 Nitroglycerin (Nitrostat) 0.4 mg PRN Q5MIN PRN SL CHEST PAIN 10/06/16 10:30 10/06/16 10:56 Morphine Sulfate 4 mg 1X ONCE IV 10/06/16 12:15 10/06/16 12:16 DC 10/06/16 13:11 Iohexol (Omnipaque 300 Mg/ml) 75 ml 1X ONCE IV 10/06/16 12:30 10/06/16 12:31 DC 10/06/16 13:27 Morphine Sulfate 4 mg PRN Q2HR PRN IV PAIN 10/06/16 14:45 10/07/16 14:44 10/07/16 03:00 Ondansetron HCl (Zofran) 4 mg PRN Q6HRS PRN IV NAUSEA/VOMITING 10/06/16 18:45 10/07/16 09:26 Multi-Ingredient Mouthwash/Gargle (Gi Cocktail Single Dose) 15 ml 1X ONCE SWSW 10/07/16 08:45 10/07/16 08:46 DC 10/07/16 09:03 ALLERGIES ALLERGIES: Coded Allergies: tetanus and diphtheria toxoids (Verified Allergy, Intermediate, Swelling. , 10/06/16) Unclear if pt had a DT or Tetanus Toxoid. Had DPT Immunizations as child and does not remember ever having any adverse or allergic reaction. ROS Review of System 14 point ROS evaluated with pertinent positives noted per HPI PHYSICAL EXAM General: Alert, Oriented X3, Cooperative, No acute distress HEENT: Atraumatic, Mucous membr. moist/pink Lungs: Clear to auscultation, Normal air movement Heart: Regular rate (Sinus tachycardia), Normal S1, Normal S2 Abdomen: Soft, No tenderness Extremities: No cyanosis, No edema Skin: No breakdown, No significant lesion Neuro: Normal speech, Sensation intact Psych/Mental Status: Mental status NL, Mood NL MUSCULOSKELETAL: Osteoarthritic changes both hands VITALS VITALS Vital Signs Date Time Temp Pulse Resp B/P (MAP) Pulse Ox O2 Delivery O2 Flow Rate FiO2 10/07/16 08:00 Room Air 10/07/16 07:00 98.3 111 19 113/52 (72) 98 98.3 LABS Lab: Laboratory Tests Test 10/06/16 12:05 10/06/16 20:40 10/07/16 02:50 Bedside Urine HCG, Qualitative Hcg negative (Negative) Troponin I Quantitative < 0.017 ng/mL (0.000-0.055) < 0.017 ng/mL (0.000-0.055) White Blood Count 16.3 x10^3/uL (4.0-11.0) Red Blood Count 5.25 x10^6/uL (3.50-5.40) Hemoglobin 15.7 g/dL (12.0-15.5) Hematocrit 47.6 % (36.0-47.0) Mean Corpuscular Volume 91 fL (79-100) Mean Corpuscular Hemoglobin 30 pg (25-35) Mean Corpuscular Hemoglobin Concent 33 g/dL (31-37) Red Cell Distribution Width 14.1 % (11.5-14.5) Platelet Count 501 x10^3/uL (140-400) Neutrophils (%) (Auto) 84 % (31-73) Lymphocytes (%) (Auto) 14 % (24-48) Monocytes (%) (Auto) 2 % (0-9) Eosinophils (%) (Auto) 0 % (0-3) Basophils (%) (Auto) 0 % (0-3) Neutrophils # (Auto) 13.7 x10^3uL (1.8-7.7) Lymphocytes # (Auto) 2.2 x10^3/uL (1.0-4.8) Monocytes # (Auto) 0.3 x10^3/uL (0.0-1.1) Eosinophils # (Auto) 0.0 x10^3/uL (0.0-0.7) Basophils # (Auto) 0.1 x10^3/uL (0.0-0.2) Sodium Level 137 mmol/L (136-145) Potassium Level 4.6 mmol/L (3.5-5.1) Chloride Level 101 mmol/L (98-107) Carbon Dioxide Level 24 mmol/L (21-32) Anion Gap 12 (6-14) Blood Urea Nitrogen 19 mg/dL (7-20) Creatinine 0.9 mg/dL (0.6-1.0) Estimated GFR (Cockcroft-Gault) 71.7 Glucose Level 156 mg/dL (70-99) Calcium Level 8.6 mg/dL (8.5-10.1) Triglycerides Level 121 mg/dL (0-150) Cholesterol Level 162 mg/dL (0-200) LDL Cholesterol, Calculated 107 mg/dL (0-100) VLDL Cholesterol, Calculated 24 mg/dL (0-40) Non-HDL Cholesterol Calculated 131 mg/dL (0-129) HDL Cholesterol 31 mg/dL (40-60) Cholesterol/HDL Ratio 5.2 Thyroid Stimulating Hormone (TSH) 1.829 uIU/mL (0.358-3.74) ASSESSMENT/PLAN ASSESSMENT/PLAN 1. Atypical CP: Doubt ACS. troponin series normal. EKG SR with nonspecific ST - T wave changes. No PE. Suspect GI: Slight relief with GI cocktail but vomited again. 2. Sinus tachycardia: Multifactorial. Would suspect extracardiac including use of Benadryl and recent allergic reaction. Could be innate as well as mother verbalized being at the 100 at rest. Certainly inappropriate sinus tach would be part of the differential 3. Esophageal thickening: likely chronic GERD with exacerbation. GI following 4. Leukocytosis: steroid/recent allergic reaction. per PCP 5. Tobaccoism 6. Left adrenal adenoma: Per PCP. new via CT, endocrine issue maybe contributing to tachycardia as well. 7. Recent urticaria with possible angioedema: Suspicion for new laundry soap as the the trigger, was given Prednisone/benadryl Friday 8. PCOS/morbid obesity 9. HLP 10. Depression: no suicidal/homicidal ideation,. Grief with recent of grandparents. Recommendations 1. Further recommendation upon TTE result. . 2. Follow GI recommendations 3. Dietitian to see, lifestyle modification, wt loss, diet, smoking cessation. 4. Outpt Event monitor would be an option but pt would likely not be able to afford with lack of insurance. Problems: ROSIO TORRES APRN Oct 07, 2016 10:32
--- NOTE | 2016-10-07 10:58 | PDOC2 ---
GI CONSULT Reason For Consult: Chest pain, esophagitis HPI: HPI: 36 y/o female who reports swelling of lips w/ hives on Friday, ?related to new soap. Was seen at [facility], started on prednisone and Benadryl. 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 Pain is worse w/ movement, feels like "a tone of bricks," similar to pain experienced prior to cholecystectomy (for stones). Tried GI cocktail, vomited. For elevated D-dimer, had CTA which was negative for PE but noted thick-walled esophagus. Denies reflux/heartburn, dysphagia, abdominal pain, weight loss, diarrhea, constipation, hematochezia, melena. No NSAID use. Thinks had an EGD years ago that was normal. No previous colonoscopy. Cardiology is following, echocardiogram planned. PMH: PMH: HTN, PCOS, depression, cholecystectomy FH: Family History: Other (father had alcoholic liver disease) Social History: Smoke: <1 pack per day ALCOHOL: none Drugs: Marijuana ROS: GEN: Denies fevers, chills, sweats HEENT: Denies blurred vision, sore throat CV: +chest pain RESP: Denies shortness of air, cough GI: Per HPI : Denies hematuria, dysuria ENDO: Denies weight changes NEURO: Denies confusion, dizziness MSK: Denies weakness, joint pain/swelling SKIN: +hives Vitals: Vitals: Vital Signs Date Time Temp Pulse Resp B/P (MAP) Pulse Ox O2 Delivery O2 Flow Rate FiO2 10/07/16 08:00 Room Air 10/07/16 07:00 98.3 111 19 113/52 (72) 98 98.3 Labs: Labs: Laboratory Tests Test 10/06/16 12:05 10/06/16 20:40 10/07/16 02:50 Bedside Urine HCG, Qualitative Hcg negative (Negative) Troponin I Quantitative < 0.017 ng/mL (0.000-0.055) < 0.017 ng/mL (0.000-0.055) White Blood Count 16.3 x10^3/uL (4.0-11.0) Red Blood Count 5.25 x10^6/uL (3.50-5.40) Hemoglobin 15.7 g/dL (12.0-15.5) Hematocrit 47.6 % (36.0-47.0) Mean Corpuscular Volume 91 fL (79-100) Mean Corpuscular Hemoglobin 30 pg (25-35) Mean Corpuscular Hemoglobin Concent 33 g/dL (31-37) Red Cell Distribution Width 14.1 % (11.5-14.5) Platelet Count 501 x10^3/uL (140-400) Neutrophils (%) (Auto) 84 % (31-73) Lymphocytes (%) (Auto) 14 % (24-48) Monocytes (%) (Auto) 2 % (0-9) Eosinophils (%) (Auto) 0 % (0-3) Basophils (%) (Auto) 0 % (0-3) Neutrophils # (Auto) 13.7 x10^3uL (1.8-7.7) Lymphocytes # (Auto) 2.2 x10^3/uL (1.0-4.8) Monocytes # (Auto) 0.3 x10^3/uL (0.0-1.1) Eosinophils # (Auto) 0.0 x10^3/uL (0.0-0.7) Basophils # (Auto) 0.1 x10^3/uL (0.0-0.2) Sodium Level 137 mmol/L (136-145) Potassium Level 4.6 mmol/L (3.5-5.1) Chloride Level 101 mmol/L (98-107) Carbon Dioxide Level 24 mmol/L (21-32) Anion Gap 12 (6-14) Blood Urea Nitrogen 19 mg/dL (7-20) Creatinine 0.9 mg/dL (0.6-1.0) Estimated GFR (Cockcroft-Gault) 71.7 Glucose Level 156 mg/dL (70-99) Calcium Level 8.6 mg/dL (8.5-10.1) Triglycerides Level 121 mg/dL (0-150) Cholesterol Level 162 mg/dL (0-200) LDL Cholesterol, Calculated 107 mg/dL (0-100) VLDL Cholesterol, Calculated 24 mg/dL (0-40) Non-HDL Cholesterol Calculated 131 mg/dL (0-129) HDL Cholesterol 31 mg/dL (40-60) Cholesterol/HDL Ratio 5.2 Thyroid Stimulating Hormone (TSH) 1.829 uIU/mL (0.358-3.74) Allergies: Coded Allergies: tetanus and diphtheria toxoids (Verified Allergy, Intermediate, Swelling. , 10/06/16) Unclear if pt had a DT or Tetanus Toxoid. Had DPT Immunizations as child and does not remember ever having any adverse or allergic reaction. Medications: Current Medications Medications (Trade) Dose Ordered Sig/Scarlet Route PRN Reason Start Time Stop Time Status Last Admin Dose Admin Morphine Sulfate 4 mg 1X ONCE IV 10/06/16 12:15 10/06/16 12:16 DC 10/06/16 13:11 Iohexol (Omnipaque 300 Mg/ml) 75 ml 1X ONCE IV 10/06/16 12:30 10/06/16 12:31 DC 10/06/16 13:27 Morphine Sulfate 4 mg PRN Q2HR PRN IV PAIN 10/06/16 14:45 10/07/16 14:44 10/07/16 03:00 Ondansetron HCl (Zofran) 4 mg PRN Q6HRS PRN IV NAUSEA/VOMITING 10/06/16 18:45 10/07/16 09:26 Multi-Ingredient Mouthwash/Gargle (Gi Cocktail Single Dose) 15 ml 1X ONCE SWSW 10/07/16 08:45 10/07/16 08:46 DC 10/07/16 09:03 Imaging: Imaging: CXR IMPRESSION: No acute cardiopulmonary process. CTA chest IMPRESSION: 1. There is no CT evidence of pulmonary embolus. 2. Majority of the esophagus is thick-walled. Correlate to any clinical evidence of esophagitis. 3. Fatty infiltration of the liver. 4. Small left adrenal adenoma. PE: GEN: looks uncomfortable, overweight HEENT: Atraumatic, PERRL LUNGS: clear anteriorly HEART: tachycardic, irregular, sternal discomfort ABD: NABS, S/ND/NT EXTREMITY: No edema SKIN: +hives NEURO/PSYCH: A & O 3, doesn't say much A/P: A/P: Chest pain, vomiting -onset yesterday at work Tachycardia Recent allergic reaction -?angioedema/urticaria, treated w/ Benadryl and prednisone Abnormal CTA chest -thick-walled esophagus, fatty liver, left adrenal adenoma S/p cholecystectomy (for stones) -- Proceed w/ cardiac workup. Denies h/o GERD symptoms, significant vomiting yesterday. IV PPI on backorder, will use IV H2 jeancarlos (?tolerate PO PPI w/ vomiting). ?EGD later TAYLER CRAWFORD Oct 07, 2016 10:58
[2016-10-07 11:00] VITALS: BP 115/70
[2016-10-07] MEDS ORDERED: PANTOPRAZOLE 40 MG TABLET.DR. PO SCH (11:30)
[2016-10-07] MEDS: FAMOTIDINE 20 MG/2 ML VIAL IVP SCH ×2 (11:53→20:13)
--- NOTE | 2016-10-07 14:53 | CARD ---
APPROVED REPORT EXAM: Two-dimensional and M-mode echocardiogram with Doppler and color Doppler. Other Information Quality : Good INDICATION Chest Pain 2D DIMENSIONS RVDd2.1 (2.9-3.5cm)Left Atrium(2D)2.7 (1.6-4.0cm) IVSd1.4 (0.7-1.1cm)Aortic Root(2D)2.4 (2.0-3.7cm) LVDd3.8 (3.9-5.9cm)LVOT Diameter1.9 (1.8-2.4cm) PWd1.2 (0.7-1.1cm)LVDs2.6 (2.5-4.0cm) FS (%) 30.1 %SV35.7 ml LVEF(%)58.1 (>50%) Aortic Valve AoV Peak Jeff.158.3cm/sAoV VTI16.6cm AO Peak GR.10.0mmHgLVOT Peak Jeff.100.5cm/s LVOT VTI 12.06cmAO Mean GR.6mmHg FELIBERTO (VMAX)1.30gu0DVC (VTI)1.97cm2 Mitral Valve MV E Kcxgexoc06.6cm/sMV DECEL [id number] MV A Rjenamqj03.4cm/sMV TXX86cw E/A Ratio0.7MVA (PHT)6.34cm2 TDI E/Lateral E'7.6E/Medial E'11.1 Tricuspid Valve TR P. [id number]/sRAP IINMOTYJ0cmZq TR Peak Gr.95oiYkDHLO77ktNz LEFT VENTRICLE The left ventricle is normal size. There is borderline concentric left ventricular hypertrophy. The l eft ventricular systolic function is normal and the ejection fraction is within normal range. The Eje ction Fraction is 55-60%. There is normal LV segmental wall motion. Transmitral Doppler flow pattern is Grade I-abnormal relaxation pattern. RIGHT VENTRICLE The right ventricle is normal size. The right ventricular systolic function is normal. ATRIA The left atrium size is normal. The right atrium size is normal. The interatrial septum is intact wit h no evidence for an atrial septal defect or patent foramen ovale as noted on 2-D or Doppler imaging. AORTIC VALVE The aortic valve is normal in structure and function. Doppler and Color Flow revealed no significant aortic regurgitation. There is no significant aortic valvular stenosis. MITRAL VALVE The mitral valve is normal in structure and function. There is no evidence of mitral valve prolapse. There is no mitral valve stenosis. Doppler and Color Flow revealed no mitral valve regurgitation note d. TRICUSPID VALVE The tricuspid valve is normal in structure and function. Doppler and Color Flow revealed trace tricus pid regurgitation. The PA pressure was estimated at 24 mmHg. There is no tricuspid valve stenosis. PULMONIC VALVE The pulmonary valve is normal in structure and function. Doppler and Color Flow revealed no pulmonic valvular regurgitation. There is no pulmonic valvular stenosis. GREAT VESSELS The aortic root is normal in size. The ascending aorta is normal in size. The IVC is normal in size a nd collapses >50% with inspiration. PERICARDIAL EFFUSION There is no evidence of significant pericardial effusion. Critical Notification Critical Value: No <Conclusion> The left ventricle is normal size. The left ventricular systolic function is normal and the ejection fraction is within normal range. The Ejection Fraction is 55-60%. There is borderline concentric left ventricular hypertrophy. There is no significant aortic valvular stenosis. Doppler and Color Flow revealed no significant aortic regurgitation. Doppler and Color Flow revealed no mitral valve regurgitation noted. Doppler and Color Flow revealed trace tricuspid regurgitation. The PA pressure was estimated at 24 mmHg.
[2016-10-07 15:00] VITALS: BP 127/78
[2016-10-07 19:45] VITALS: BP 118/79
[2016-10-07] MEDS: IV NORMAL SALINE 1000ML BAG 1,000 ML IV SCH (21:12)
[2016-10-07 23:15] VITALS: BP 114/66
[2016-10-08 03:50] VITALS: BP 150/72
[2016-10-08] MEDS: ONDANSETRON PF 4 MG/2 ML VIAL. IV PRN ×2 (04:50→19:19)
[2016-10-08] MEDS: MORPHINE SULFATE 4 MG/ML DISP.SYRIN. IV PRN ×3 (04:55→13:44)
[2016-10-08 07:00] VITALS: BP 130/67
[2016-10-08] MEDS: IV NORMAL SALINE 1000ML BAG 1,000 ML IV SCH (07:26)
[2016-10-08] MEDS: FAMOTIDINE 20 MG/2 ML VIAL IVP SCH (09:00)
[2016-10-08] MEDS ORDERED: LIDOCAINE 2% PF Vial for OR 5 ML VIAL. ONE (11:23)
[2016-10-08] MEDS ORDERED: PROPOFOL 20 ML IV ONE (11:23)
[2016-10-08] MEDS ORDERED: PROPOFOL 0 ML IV ONE (11:23)
--- NOTE | 2016-10-08 11:41 | PDOC4 ---
PROCEDURE Procedure EGD Indication: Epigastric/chest pain, nausea, vomiting, Abnormal esophagus on CT Meds: per anesthesia. Findings: E--Less than grade I reflux at 42cm with "microerosions", otherwise normal. G--Normal. D--Normal to 3rd portion. Oliva. well. IMP: Endoscopically mild reflux esophagitis, otherwise normal exam. REC: PPI. Try diet. CT head? Pseudotumor from steroids? MADALYN WHITTINGTON MD Oct 08, 2016 11:41
--- NOTE | 2016-10-08 13:59 | PDOC ---
CARDIO Progress Notes Date and Time Date of Service 10/08/2016 Time of Evaluation 1300 Subjective Subjective: No Chest Pain, No shortness of breath, No Palpitations Vitals Vitals Vital Signs Date Time Temp Pulse Resp B/P (MAP) Pulse Ox O2 Delivery O2 Flow Rate FiO2 10/08/16 13:44 Room Air 10/08/16 12:05 100.3 113 20 114/73 100 100.3 Weight Weight [ ] Input and Output Intake and Output Intake and Output 10/08/16 07:00 Intake Total 780 ml Output Total 301 ml Balance 479 ml Intake Oral 80 ml Other 700 ml Output Urine Total 301 ml # Voids 1 Physical Exam HEENT: Neck Supple W Full Motion Chest: Symmetric LUNGS: Clear to Auscultation Heart: S1S2, RRR (SR/ST) Abdomen: Soft N/T, Other (truncal obesity) Extremities: No Edema, No Calf Tenderness Neurology: alert, oriented, follow commands Assessment Assessment 1. Atypical CP: Noncardiac. GI related. 2. Asymptomatic sinus tachycardia: Suspect extracardiac. Presently 90-110. Could be innate, mother has the same. Certainly inappropriate sinus tach would be part of the differential. No significant symptoms 3. Esophageal thickening: S/P EGD with reflux esophagitis 4. Tobaccoism 5. HLP Recommendations 1. EF normal and normal wall motion via TTE. Discussed pathophysiology of sinus tach and cardiac symptoms. Instructed to call if any symptoms. No need for BB at this time 2. Follow GI recommendations 3. Continue with lifestyle modifications. 4. Discussed outpt Event monitor but pt would not be able to afford due to lack of insurance. ROSIO TORRES [employer] COMM[employer]ICATION[employer] SPECIALIST Oct 08, 2016 13:59
[2016-10-08] MEDS ORDERED: PANT40TA3 PO (14:02)
--- NOTE | 2016-10-08 14:08 | PDOC3 ---
Discharge Summary Visit Information Date of Admission: Oct 06, 2016 Date of Discharge: Oct 08, 2016 Admitting Diagnosis Comment: 1. Chest pain,REFLUX ESOPHAGITIS on EGD (10/08) with grade 1 reflux and microerosions 2. Esophagitis on CT 3. Fatty liver 4. INcidental left small adrenal adenoma 5. Morbid Obesity BMI 41 6. Recent anaphylaxis (lip swelling and hives), hence on pred Final Diagnosis Problems Medical Problems: (1) Chest pain Status: Acute Brief Hospital Course Allergies Allergies Coded Allergies Type Severity Reaction Last Updated Verified tetanus and diphtheria toxoids Allergy Intermediate Swelling. 10/08/16 Yes Vital Signs Vital Signs Date Time Temp Pulse Resp B/P (MAP) Pulse Ox O2 Delivery O2 Flow Rate FiO2 10/08/16 13:44 Room Air 10/08/16 12:05 100.3 113 20 114/73 100 100.3 Lab Results Laboratory Tests Test 10/06/16 20:40 10/07/16 02:50 Troponin I Quantitative < 0.017 ng/mL (0.000-0.055) < 0.017 ng/mL (0.000-0.055) White Blood Count 16.3 x10^3/uL (4.0-11.0) Red Blood Count 5.25 x10^6/uL (3.50-5.40) Hemoglobin 15.7 g/dL (12.0-15.5) Hematocrit 47.6 % (36.0-47.0) Mean Corpuscular Volume 91 fL (79-100) Mean Corpuscular Hemoglobin 30 pg (25-35) Mean Corpuscular Hemoglobin Concent 33 g/dL (31-37) Red Cell Distribution Width 14.1 % (11.5-14.5) Platelet Count 501 x10^3/uL (140-400) Neutrophils (%) (Auto) 84 % (31-73) Lymphocytes (%) (Auto) 14 % (24-48) Monocytes (%) (Auto) 2 % (0-9) Eosinophils (%) (Auto) 0 % (0-3) Basophils (%) (Auto) 0 % (0-3) Neutrophils # (Auto) 13.7 x10^3uL (1.8-7.7) Lymphocytes # (Auto) 2.2 x10^3/uL (1.0-4.8) Monocytes # (Auto) 0.3 x10^3/uL (0.0-1.1) Eosinophils # (Auto) 0.0 x10^3/uL (0.0-0.7) Basophils # (Auto) 0.1 x10^3/uL (0.0-0.2) Sodium Level 137 mmol/L (136-145) Potassium Level 4.6 mmol/L (3.5-5.1) Chloride Level 101 mmol/L (98-107) Carbon Dioxide Level 24 mmol/L (21-32) Anion Gap 12 (6-14) Blood Urea Nitrogen 19 mg/dL (7-20) Creatinine 0.9 mg/dL (0.6-1.0) Estimated GFR (Cockcroft-Gault) 71.7 Glucose Level 156 mg/dL (70-99) Hemoglobin A1c 6.0 % (4.8-5.6) Calcium Level 8.6 mg/dL (8.5-10.1) Magnesium Level 1.9 mg/dL (1.8-2.4) Triglycerides Level 121 mg/dL (0-150) Cholesterol Level 162 mg/dL (0-200) LDL Cholesterol, Calculated 107 mg/dL (0-100) VLDL Cholesterol, Calculated 24 mg/dL (0-40) Non-HDL Cholesterol Calculated 131 mg/dL (0-129) HDL Cholesterol 31 mg/dL (40-60) Cholesterol/HDL Ratio 5.2 Thyroid Stimulating Hormone (TSH) 1.829 uIU/mL (0.358-3.74) Brief Hospital Course Ms. Dao is a 36 old [sex] who presented with midsternal chest pain, Echo is normal. CArdiac work up normal, EGD done showed grade 1 reflux and microerosions, Advised PPI PO qD. PT seen and examined On going CP, but just need sto give PPI a try at home COunselled > 50% time, DispO; home COnsults: GI and cards Proc: EGD Discharge Information Condition at Discharge: Improved, Stable Disposition/Orders: D/C to Home Scheduled Prednisone (Prednisone), 1 TAB PO DAILY, (Reported) Scheduled PRN Diphenhydramine Hcl (Benadryl), 2 CAP PO Q4-6HRS PRN for ALLERGIES, (Reported) Discontinued Medications Info (No Known Medications Prior To Admisstion), 1 EACH , (Reported) GUSTAVO FLORES MD Oct 08, 2016 14:08
[2016-10-08 15:00] VITALS: BP 106/53
--- NOTE | 2016-10-08 16:44 | RAD ---
Nuclear medicine gastric emptying study History: Nausea and vomiting. Epigastric discomfort for 3 days. Technique: After oral ingestion of a meal containing 2.10 mCi of technetium 99m sulfur colloid, anterior planar images of the upper abdomen were performed in sequential fashion and a time/activity curve was generated. Half time gastric clearance was measured and calculated. Findings: Half-time clearance had to be extrapolated and is 1371 minutes. Normal range is 45-90 minutes. Therefore, there is very poor emptying of the stomach. IMPRESSION: Significant decrease in emptying of the stomach.
[2016-10-08] MEDS: PANTOPRAZOLE 40 MG TABLET.DR. PO SCH (16:49)
--- NOTE | 2016-10-08 17:44 | PDOC ---
Provider Note Provider Note CAlled By RN. GET is markedly ABN - SIGNIF DELAY in GET. Pt has not taken anything PO today bec of tests. HOld dc, start reglan PO TID GI soft dw LESLIE perkins, 2 notes today GUSTAVO FLORES MD Oct 08, 2016 17:43
[2016-10-08 19:35] VITALS: BP 133/80
[2016-10-08] MEDS: METOCLOPRAMIDE 10 MG TABLET. PO SCH (20:21)
[2016-10-08 23:05] VITALS: BP 125/83
[2016-10-09 03:20] VITALS: BP 130/76
[2016-10-09] MEDS: PANTOPRAZOLE 40 MG TABLET.DR. PO SCH (06:36)
[2016-10-09] MEDS: METOCLOPRAMIDE 10 MG TABLET. PO SCH (06:36)
[2016-10-09] MEDS: ONDANSETRON PF 4 MG/2 ML VIAL. IV PRN ×2 (06:39→21:33)
[2016-10-09 07:00] VITALS: BP 181/85
[2016-10-09] MEDS: MORPHINE SULFATE 4 MG/ML DISP.SYRIN. IV PRN ×2 (07:36→13:09)
--- NOTE | 2016-10-09 09:45 | PDOC ---
Subjective: Subjective: Had "terrible" pain earlier, resolved w/ morphine. Dry-heaves and nausea earlier. Doesn't want to eat. Objective: Objective: Per RN - retching earlier, not eating. Has PO Reglan and PPI. Vital Signs: Vital Signs Date Time Temp Pulse Resp B/P (MAP) Pulse Ox O2 Delivery O2 Flow Rate FiO2 10/09/16 08:06 97 Room Air 10/09/16 07:00 97.6 106 17 181/85 (117) 97.6 Imagin10/08/16: EGD E--Less than grade I reflux at 42cm with "microerosions", otherwise normal. G--Normal. D--Normal to 3rd portion. IMP: Endoscopically mild reflux esophagitis, otherwise normal exam. GES Findings: Half-time clearance had to be extrapolated and is 1371 minutes. Normal range is 45-90 minutes. Therefore, there is very poor emptying of the stomach. IMPRESSION: Significant decrease in emptying of the stomach. PE: GEN: NAD LUNGS: clear HEART: tachycardic ABD: not tender currently NEURO/PSYCH: A & O 3 A/P: Delayed gastric emptying Abd pain, n/v/retching Mild reflux -- Will change Reglan from PO to IV. Check CT head. TAYLER CRAWFORD Oct 09, 2016 09:45
[2016-10-09 11:00] VITALS: BP 135/83
--- NOTE | 2016-10-09 11:01 | RAD ---
Indication: Nausea and vomiting. Axial imaging through the brain was performed without contrast. The ventricles and sulci are within normal limits. No sulcal effacement, midline shift or hemorrhage is detected. The cisterns are patent. The visualized paranasal sinuses are clear. Impression: No acute intracranial process is detected. PQRS Compliance Statement: One or more of the following individualized dose reduction techniques were utilized for this examination: 1. Automated exposure control 2. Adjustment of the mA and/or kV according to patient size 3. Use of iterative reconstruction technique
[2016-10-09] MEDS: METOCLOPRAMIDE HCL 10 MG/2 ML VIAL. IV SCH ×3 (11:30→21:33)
[2016-10-09 15:00] VITALS: BP 136/82
--- NOTE | 2016-10-09 16:50 | PDOC ---
PROGRESS NOTES Chief Complaint Chief Complaint Chest pain, non cardiac ASSESSMENT AND PLAN: 1. Esophagitis: visualized on CT, culprit for sx. swallowing no longer an issue, but abd pain post eating. unclear etiology. continue clear liquids for now. PPI. miralax for constipation 2. Sinus tachycardia: CTA neg for PE, enzymes ruled out ACS. borderline now, poss volume contraction. IVF with poor PO intake 3. Fatty liver 4. Incidental left small adrenal adenoma 5. Recent anaphylaxis (lip swelling and hives), hence on pred - now stopped 6. Morbid Obesity BMI 41 History of Present Illness History of Present Illness doing ok, but pain after eating, generalized abd pain, saul in stomach. no BM since Sat Vitals Vitals Vital Signs Date Time Temp Pulse Resp B/P (MAP) Pulse Ox O2 Delivery O2 Flow Rate FiO2 10/09/16 15:00 98.3 103 17 136/82 (100) 94 Room Air 98.3 Physical Exam General: Alert, Oriented X3, Cooperative, No acute distress Heart: Regular rate (Sinus tachycardia) Lungs: Clear Abdomen: Normal bowel sounds, Soft, No tenderness Extremities: No cyanosis, No edema Skin: No breakdown GHAZALA APODACA MD Oct 09, 2016 16:50
[2016-10-09] MEDS: POLYETHYLENE GLYCOL 3350 17 GM PACKET. PO SCH (17:00)
[2016-10-09] MEDS ORDERED: MORPHINE SULFATE 4 MG/ML DISP.SYRIN. IV PRN (18:45)
[2016-10-09 19:55] VITALS: BP 135/79
[2016-10-09 23:11] VITALS: BP 146/81
[2016-10-10 02:07] VITALS: BP 149/80
[2016-10-10 05:20] LABS: BASO % 0 % (0-3); EOS % 1 % (0-3); HEMATOCRIT 33.6 % (36.0-47.0); HEMOGLOBIN 11.7 g/dL (12.0-15.5); LYMPH # 1.5 x10^3/uL (1.0-4.8); LYMPH % 26 % (24-48); MEAN CORPUSCULAR HEMOGLOBIN 31 pg (25-35); MEAN CORPUSCULAR HGB CONC 35 g/dL (31-37); MEAN CORPUSCULAR VOLUME 89 fL (79-100); MONO % 4 % (0-9); NEUT % 68 % (31-73); PLATELET COUNT 281 x10^3/uL (140-400); RED BLOOD COUNT 3.79 x10^6/uL (3.50-5.40); RED CELL DISTRIBUTION WIDTH 13.2 % (11.5-14.5); WHITE BLOOD COUNT 5.8 x10^3/uL (4.0-11.0)
[2016-10-10 05:42] LABS: ALBUMIN 2.9 g/dL (3.4-5.0); ALBUMIN/GLOBULIN RATIO 1.1 (1.0-1.7); CALCIUM 8.1 mg/dL (8.5-10.1); CREATININE 0.8 mg/dL (0.6-1.0); GFR 82.1; POTASSIUM 3.7 mmol/L (3.5-5.1); TOTAL BILIRUBIN 0.3 mg/dL (0.2-1.0); TOTAL PROTEIN 5.6 g/dL (6.4-8.2)
[2016-10-10 07:00] VITALS: BP 135/79
[2016-10-10] MEDS: METOCLOPRAMIDE HCL 10 MG/2 ML VIAL. IV SCH ×2 (07:24→11:10)
[2016-10-10] MEDS: PANTOPRAZOLE 40 MG TABLET.DR. PO SCH (07:25)
[2016-10-10] MEDS: POLYETHYLENE GLYCOL 3350 17 GM PACKET. PO SCH (09:55)
[2016-10-10 11:00] VITALS: BP 167/98
--- NOTE | 2016-10-10 11:10 | PDOC ---
Subjective: Subjective: Feeling better, wants to go home. No pain, n/v. Objective: Objective: Per RN - doing better. Vital Signs: Vital Signs Date Time Temp Pulse Resp B/P (MAP) Pulse Ox O2 Delivery O2 Flow Rate FiO2 10/10/16 07:38 Room Air 10/10/16 07:00 97.8 100 18 135/79 (97) 93 97.8 Labs: Laboratory Tests Test 10/10/16 05:00 White Blood Count 5.8 x10^3/uL Red Blood Count 3.79 x10^6/uL Hemoglobin 11.7 g/dL Hematocrit 33.6 % Mean Corpuscular Volume 89 fL Mean Corpuscular Hemoglobin 31 pg Mean Corpuscular Hemoglobin Concent 35 g/dL Red Cell Distribution Width 13.2 % Platelet Count 281 x10^3/uL Neutrophils (%) (Auto) 68 % Lymphocytes (%) (Auto) 26 % Monocytes (%) (Auto) 4 % Eosinophils (%) (Auto) 1 % Basophils (%) (Auto) 0 % Neutrophils # (Auto) 4.0 x10^3uL Lymphocytes # (Auto) 1.5 x10^3/uL Monocytes # (Auto) 0.3 x10^3/uL Eosinophils # (Auto) 0.1 x10^3/uL Basophils # (Auto) 0.0 x10^3/uL Sodium Level 139 mmol/L Potassium Level 3.7 mmol/L Chloride Level 104 mmol/L Carbon Dioxide Level 29 mmol/L Anion Gap 6 Blood Urea Nitrogen 13 mg/dL Creatinine 0.8 mg/dL Estimated GFR (Cockcroft-Gault) 82.1 BUN/Creatinine Ratio 16 Glucose Level 100 mg/dL Calcium Level 8.1 mg/dL Total Bilirubin 0.3 mg/dL Aspartate Amino Transf (AST/SGOT) 20 U/L Alanine Aminotransferase (ALT/SGPT) 28 U/L Alkaline Phosphatase 46 U/L Total Protein 5.6 g/dL Albumin 2.9 g/dL Albumin/Globulin Ratio 1.1 Imaging: CT Head 10/09/16 Impression: No acute intracranial process is detected. PE: GEN: NAD LUNGS: clear anteriorly HEART: tachycardic ABD: S/ND/NT NEURO/PSYCH: A & O 3 A/P: Delayed gastric emptying Abd pain, n/v/retching - resolved Mild reflux Constipation -- Transition from IV to PO Reglan (d/w RN). Continue PPI and Miralax. ADAT. TAYLER CRAWFORD Oct 10, 2016 11:10
[2016-10-10] MEDS: METOCLOPRAMIDE HCL 10 MG/10 ML SOLUTION. PO SCH ×2 (11:14→16:33)
[2016-10-10] MEDS ORDERED: METO5TAB PO (14:35)
[2016-10-10 14:57] VITALS: BP 122/81
--- NOTE | 2016-10-13 18:40 | PDOC3 ---
Discharge Summary* Date of Admission: Oct 06, 2016 Date of Discharge: Oct 10, 2016 Admitting Diagnosis Chest pain Problems: Final Diagnosis Gastroparesis CONSULTS Cardiology, Gastroenterology Brief Hospital Course Mrs Dao is a36 y/o woman with multiple cardiac risk factors who presented with substernal chest pain. Underwent CTA in the ER, which was negative for PE , but did show signs of esophagitis. 1. Esophagitis: visualized on CT, culprit for sx. swallowing no longer an issue, but abd pain post eating. Gastric emptying study showed slowed emptying c/w gastroparesis. she was started on reglan with good response and resolution of sx. 2. Sinus tachycardia: CTA neg for PE, enzymes ruled out ACS. borderline now, poss volume contraction. IVF with poor PO intake 3. Fatty liver 4. Incidental left small adrenal adenoma 5. Recent anaphylaxis (lip swelling and hives), hence on pred - now stopped 6. Morbid Obesity BMI 41 Disposition/Orders: D/C to Home CONDITION AT DISCHARGE: Improved, Stable Diet: Regular Scheduled Metoclopramide Hcl (Metoclopramide Hcl), 5 MG PO QIDACHS Pantoprazole Sodium (Protonix), 40 TAB PO DAILY Scheduled PRN Diphenhydramine Hcl (Benadryl), 2 CAP PO Q4-6HRS PRN for ALLERGIES, (Reported) Discontinued Medications Info (No Known Medications Prior To Admisstion), 1 EACH MC, (Reported) Prednisone (Prednisone), 1 TAB PO DAILY, (Reported) FOLLOW UP APPOINTMENT: PCP in 1-[address] ePace in 1 month GHAZALA APODACA MD Oct 13, 2016 18:40
== END 2016-10-10 18:08 | disposition home or self-care (01) | DRG 392 ==
LOC: ER 10:03 → 2 NORTH 14:37
PROVIDERS: ADMIT Internal Medicine; ATTEND Internal Medicine
PROC: 0DJ08ZZ Inspection of Upper Intestinal Tract, Via Natural or Artificial Opening Endoscopic (ICD-10-PCS; principal; 2016-10-08 12:30)
DX: K21.0 Gastro-esophageal reflux disease with esophagitis (principal); Z68.41 Body mass index [BMI] 40.0-44.9, adult; R00.0 Tachycardia, unspecified; K31.84 Gastroparesis; D35.02 Benign neoplasm of left adrenal gland; D72.829 Elevated white blood cell count, unspecified; E28.2 Polycystic ovarian syndrome; E66.01 Morbid (severe) obesity due to excess calories; E78.5 Hyperlipidemia, unspecified; F17.210 Nicotine dependence, cigarettes, uncomplicated; F32.9 Major depressive disorder, single episode, unspecified; I10 Essential (primary) hypertension; K59.00 Constipation, unspecified; K76.0 Fatty (change of) liver, not elsewhere classified; Z82.49 Family history of ischemic heart disease and other diseases of the circulatory system; Z90.49 Acquired absence of other specified parts of digestive tract
CPT/HCPCS: 36415; 70450; 71010; 71275; 78264; 80048; 80053; 80061; 81025; 83036; 83735; 84443; 84484; 84703; 85007; 85027; 85379; 93005; 93306; 96374; A6539; A9541; J2001; J2270; J2405; J2704; J2765; J7030; J8597; Q0163; Q9967; S0028; 99285-25

== ENCOUNTER 2018-12-01 09:48 | Emergency (ER) | payer SELFPAY ==
[~2018-12-01] VITALS: Ht 160 cm; Wt 92.5 kg
[~2018-12-01 09:48] MED LIST: DIPH25CA58 PO; METO5TAB PO; PANT40TA77 PO; PRED50TA PO
[2018-12-01 10:23] LABS: BASO # 0.1 x10^3/uL (0.0-0.2); BASO % 1 % (0-3); EOS # 0.1 x10^3/uL (0.0-0.7); EOS % 1 % (0-3); HEMATOCRIT 41.5 % (36.0-47.0); HEMOGLOBIN 14.4 g/dL (12.0-15.5); LYMPH # 1.6 x10^3/uL (1.0-4.8); LYMPH % 15 % (24-48); MEAN CORPUSCULAR HEMOGLOBIN 31 pg (25-35); MEAN CORPUSCULAR HGB CONC 35 g/dL (31-37); MEAN CORPUSCULAR VOLUME 89 fL (79-100); MONO # 0.5 x10^3/uL (0.0-1.1); MONO % 5 % (0-9); NEUT # 8.2 x10^3/uL (1.8-7.7); NEUT % 78 % (31-73); PLATELET COUNT 346 x10^3/uL (140-400); RED BLOOD COUNT 4.66 x10^6/uL (3.50-5.40); RED CELL DISTRIBUTION WIDTH 13.9 % (11.5-14.5); WHITE BLOOD COUNT 10.5 x10^3/uL (4.0-11.0)
--- NOTE | 2018-12-01 10:28 | PHYS DOC ---
Past Medical History Past Medical History: Depression, Hypertension, Other Additional Past Medical Histor: ovarian cyst Past Surgical History: Cholecystectomy Alcohol Use: Rarely Drug Use: None Adult General Chief Complaint Chief Complaint: ABDOMINAL PAIN HPI HPI Patient is a 38 year old female who presents with complaining of abdominal pain. Patient complaining of gradual onset of right lower quadrant pain since yesterday morning as a constant and sharp pain with episodes of stabbing pain wi th radiation to pelvic area. Patient rated her pain 7-10 and complaining of nausea without vomiting, diarrhea, urinary symptoms, vaginal bleeding or discharge, fever and chills. She was in this emergency room in 11/11/2018 with similar abdominal pain and had CT of abdomen and pelvis with showing 14.7 cm right ovarian months. Patient followed-up with PRIMARY CLINICIAN and waiting for insurance to have procedure. Review of Systems Review of Systems Constitutional: Denies fever or chills [] Eyes: Denies change in visual acuity, redness, or eye pain [] HENT: Denies nasal congestion or sore throat [] Respiratory: Denies cough or shortness of breath [] Cardiovascular: No additional information not addressed in HPI [] GI: Reports abdominal pain, nausea, denies vomiting, bloody stools or diarrhea [] : Denies dysuria or hematuria [] Musculoskeletal: Denies back pain or joint pain [] Integument: Denies rash or skin lesions [] Neurologic: Denies headache, focal weakness or sensory changes [] Endocrine: Denies polyuria or polydipsia [] All other systems were reviewed and found to be within normal limits, except as documented in this note. Current Medications Current Medications Current Medications Medications (Trade) Dose Ordered Sig/[facility] Start Time Stop Time Status Last Admin Dose Admin Fentanyl Citrate (Fentanyl 2ml Vial) 50 mcg 1X ONCE 12/01/18 10:30 12/01/18 10:31 DC 12/01/18 11:03 50 MCG Ondansetron HCl (Zofran) 4 mg 1X ONCE 12/01/18 10:30 12/01/18 10:31 DC 12/01/18 11:03 4 MG Sodium Chloride 1,000 ml @ 1,000 mls/hr Q1H 12/01/18 10:30 12/01/18 11:29 DC 12/01/18 11:03 1,000 MLS/HR Allergies Allergies Allergies Coded Allergies Type Severity Reaction Last Updated Verified tetanus and diphtheria toxoids Allergy Intermediate Swelling. 10/08/16 Yes Physical Exam Physical Exam Constitutional: Well developed, well nourished, mild distress, non-toxic appearance. [] HENT: Normocephalic, atraumatic. Eyes: PERRLA, EOMI, conjunctiva normal, no discharge. [] Neck: Normal range of motion, no tenderness, supple, no stridor. [] Cardiovascular:Heart rate regular rhythm, no murmur [] Lungs & Thorax: Bilateral breath sounds clear to auscultation [] Abdomen: Bowel sounds normal, soft, right lower quadrant tenderness, no masses, no pulsatile masses. [] Skin: Warm, dry, no erythema, no rash. [] Back: No tenderness, no CVA tenderness. [] Extremities: No tenderness, no cyanosis, no clubbing, ROM intact, no edema. [] Neurologic: Alert and oriented X 3, no focal deficits noted. [] Psychologic: Affect normal, judgement normal, mood normal. [] Current Patient Data Vital Signs Vital Signs Date Time Temp Pulse Resp B/P (MAP) Pulse Ox O2 Delivery O2 Flow Rate FiO2 12/01/18 11:03 18 97 Room Air 12/01/18 10:13 98.1 78 165/90 (115) 98.1 Lab Values Laboratory Tests Test 12/01/18 10:05 12/01/18 10:50 12/01/18 10:55 White Blood Count 10.5 x10^3/uL (4.0-11.0) Red Blood Count 4.66 x10^6/uL (3.50-5.40) Hemoglobin 14.4 g/dL (12.0-15.5) Hematocrit 41.5 % (36.0-47.0) Mean Corpuscular Volume 89 fL (79-100) Mean Corpuscular Hemoglobin 31 pg (25-35) Mean Corpuscular Hemoglobin Concent 35 g/dL (31-37) Red Cell Distribution Width 13.9 % (11.5-14.5) Platelet Count 346 x10^3/uL (140-400) Neutrophils (%) (Auto) 78 % (31-73) H Lymphocytes (%) (Auto) 15 % (24-48) L Monocytes (%) (Auto) 5 % (0-9) Eosinophils (%) (Auto) 1 % (0-3) Basophils (%) (Auto) 1 % (0-3) Neutrophils # (Auto) 8.2 x10^3/uL (1.8-7.7) H Lymphocytes # (Auto) 1.6 x10^3/uL (1.0-4.8) Monocytes # (Auto) 0.5 x10^3/uL (0.0-1.1) Eosinophils # (Auto) 0.1 x10^3/uL (0.0-0.7) Basophils # (Auto) 0.1 x10^3/uL (0.0-0.2) Sodium Level 140 mmol/L (136-145) Potassium Level 4.0 mmol/L (3.5-5.1) Chloride Level 103 mmol/L (98-107) Carbon Dioxide Level 29 mmol/L (21-32) Anion Gap 8 (6-14) Blood Urea Nitrogen 10 mg/dL (7-20) Creatinine 0.9 mg/dL (0.6-1.0) Estimated GFR (Cockcroft-Gault) 70.8 BUN/Creatinine Ratio 11 (6-20) Glucose Level 120 mg/dL (70-99) H Calcium Level 8.8 mg/dL (8.5-10.1) Total Bilirubin 0.5 mg/dL (0.2-1.0) Aspartate Amino Transferase (AST) 15 U/L (15-37) Alanine Aminotransferase (ALT) 19 U/L (14-59) Alkaline Phosphatase 85 U/L (46-116) Total Protein 7.7 g/dL (6.4-8.2) Albumin 4.2 g/dL (3.4-5.0) Albumin/Globulin Ratio 1.2 (1.0-1.7) Urine Collection Type Unknown Urine Color Yellow Urine Clarity Clear Urine pH 6.0 Urine Specific [place] 1.015 Urine Protein Negative mg/dL (NEG-TRACE) Urine Glucose (UA) Negative mg/dL (NEG) Urine Ketones (Stick) Negative mg/dL (NEG) Urine Blood Trace (NEG) Urine Nitrite Negative (NEG) Urine Bilirubin Negative (NEG) Urine Urobilinogen Dipstick 0.2 mg/dL (0.2 mg/dL) Urine Leukocyte Esterase Negative (NEG) Urine RBC Occ /HPF (0-2) Urine WBC 1-4 /HPF (0-4) Urine Squamous Epithelial Cells Mod /LPF Urine Bacteria Few /HPF (0-FEW) Urine Mucus Mod /LPF POC Urine HCG, Qualitative Hcg negative (Negative) Laboratory Tests 12/01/18 10:05 Laboratory Tests 12/01/18 10:05 EKG EKG [] Radiology/Procedures Radiology/Procedures [][facility] [address] [place] [address] IMAGING REPORT Signed PATIENT: DANISHA HOFFMAN DACCOUNT: [id number] : 1980 LOCATION: ER AGE: 38 SEX: F EXAM STATUS: REG ER ORD. PHYSICIAN: CHARIS VALENTE MD REASON: large ovarian mass, pain since yesterday PROCEDURE: PELVIS COMPLETE PELVIS COMPLETE History: Large ovarian mass. Pelvic pain. Comparison: CT November 11, 2018. Technique: Grayscale and color Doppler imaging of the pelvis was performed using transabdominal technique. Patient declined transvaginal examination due to pain. Findings: The uterus measures 6.2 x 4.9 x 3.4 cm in length. Uterus has an unremarkable appearance. The endometrial stripe measures 2.6 mm, within normal limits. Large right ovarian solid mass with Doppler flow measures 9.7 x 11.5 x 8.5 cm. The left ovary is not identified due to positioning and overlying bowel gas. IMPRESSION: 1. Large right ovarian solid mass, similar compared to prior CT allowing for differences in technique. Recommend MRI to further evaluate. 2. Left ovary not identified. 3. Otherwise, unremarkable pelvic ultrasound. Electronically signed by: Quan Cunningham DO (12/01/2018 11:07 AM) [id number] DICTATED and SIGNED BY: QUAN CUNNINGHAM DO DATE: 12/01/181106 Course & Med Decision Making Course & Med Decision Making Pertinent Labs and Imaging studies reviewed. (See chart for details) Evaluation of patient in ER showed 38-year-old male patient with known right ovarian mass and complaining of pain since yesterday. Patient had unremarkable physical exam and labs. Ultrasound of pelvis showed ovarian mass without bleeding or torsion. She had felt better with treatment in ER. She was advised to follow-up with PRIMARY CLINICIAN. Allen Disclaimer Dragon Disclaimer This electronic medical record was generated, in whole or in part, using a voice recognition dictation system. Departure Departure Impression: Primary Impression: Right lower quadrant pain Additional Impression: Mass of right ovary Disposition: HOME, SELF-CARE (at 1153) Condition: IMPROVED Referrals: NO PCP (PCP) JUDITH SNOW MD Patient Instructions: Ovarian Tumors Additional Instructions: Drink plenty of liquids Follow-up with your primary care physician in 3-5 days Return to ER if not getting better Scripts Hydrocodone/Apap 5-325 (NORCO 5-325 TABLET) 1 Each Tablet 1 TAB PO PRN Q6HRS PRN for PAIN, #20 TAB 0 Refills Prov: CHARIS VALENTE MD 12/01/18 Problem Qualifiers CHARIS VALENTE MD Dec 01, 2018 10:28
[2018-12-01] MEDS ORDERED: IV NORMAL SALINE 1000ML BAG 1,000 ML IV SCH (10:30)
[2018-12-01] MEDS ORDERED: ONDANSETRON PF 4 MG/2 ML VIAL. IV ONE (10:30)
[2018-12-01] MEDS ORDERED: fentaNYL PF VIAL 100 MCG/2 ML VIAL IV ONE (10:30)
[2018-12-01 10:37] LABS: CALCIUM 8.8 mg/dL (8.5-10.1); CREATININE 0.9 mg/dL (0.6-1.0); GFR 70.8
[2018-12-01 10:44] LABS: ALBUMIN 4.2 g/dL (3.4-5.0); ALBUMIN/GLOBULIN RATIO 1.2 (1.0-1.7); TOTAL BILIRUBIN 0.5 mg/dL (0.2-1.0); TOTAL PROTEIN 7.7 g/dL (6.4-8.2)
[2018-12-01 11:03] LABS: BILIRUBIN,URINE NEGATIVE (NEG); CLARITY,URINE CLEAR; COLOR,URINE YELLOW; NITRITE,URINE NEGATIVE (NEG); PROTEIN,URINE NEGATIVE (NEG-TRACE); UROBILINOGEN,URINE 0.2 mg/dL (0.2 mg/dL)
--- NOTE | 2018-12-01 11:09 | RAD ---
PELVIS COMPLETE History: Large ovarian mass. Pelvic pain. Comparison: CT November 11, 2018. Technique: Grayscale and color Doppler imaging of the pelvis was performed using transabdominal technique. Patient declined transvaginal examination due to pain. Findings: The uterus measures 6.2 x 4.9 x 3.4 cm in length. Uterus has an unremarkable appearance. The endometrial stripe measures 2.6 mm, within normal limits. Large right ovarian solid mass with Doppler flow measures 9.7 x 11.5 x 8.5 cm. The left ovary is not identified due to positioning and overlying bowel gas. IMPRESSION: 1. Large right ovarian solid mass, similar compared to prior CT allowing for differences in technique. Recommend MRI to further evaluate. 2. Left ovary not identified. 3. Otherwise, unremarkable pelvic ultrasound. Electronically signed by: Quan Cunningham DO (12/01/2018 11:07 AM) [id number]
[2018-12-01 11:13] LABS: BACTERIA,URINE FEW /HPF (0-FEW); RBC,URINE OCC /HPF (0-2); SQUAMOUS EPITHELIAL CELL,UR MOD /LPF
[2018-12-01] MEDS ORDERED: HYDR-3164 PO (11:55)
[2018-12-01 12:25] VITALS: BP 180/88
[2018-12-02] MEDS ORDERED: ONDA4TAB12 PO (19:27)
[2018-12-02] MEDS ORDERED: DICL50TA2 PO (19:27)
== END 2018-12-01 12:25 | disposition home or self-care (01) ==
LOC: ER 09:48
DX: N83.9 Noninflammatory disorder of ovary, fallopian tube and broad ligament, unspecified (principal); R10.31 Right lower quadrant pain; R19.7 Diarrhea, unspecified; R11.0 Nausea; R10.2 Pelvic and perineal pain; I10 Essential (primary) hypertension; Z90.49 Acquired absence of other specified parts of digestive tract; Z88.7 Allergy status to serum and vaccine
CPT/HCPCS: 36415; 76856; 80053; 81001; 81025; 85025; 96374; 96375; 99285; J2405; J3010; J7030

== ENCOUNTER 2018-12-02 16:11 | Emergency (ER) | payer SELFPAY ==
[~2018-12-02] VITALS: Ht 160 cm; Wt 92.5 kg
[~2018-12-02 16:11] MED LIST changes: +HYDR-3164 PO
[2018-12-02] MEDS ORDERED: ONDANSETRON ODT 4 MG TAB.RAPDIS. PO ONE (17:00)
[2018-12-02] MEDS ORDERED: MORPHINE SULFATE 10 MG/ML VIAL. IM ONE (17:00)
[2018-12-02] MEDS ORDERED: KETOROLAC 60 MG/2 ML VIAL. IM ONE (17:00)
--- NOTE | 2018-12-02 19:24 | PHYS DOC ---
Past Medical History Past Medical History: Depression, Hypertension, Other Additional Past Medical Histor: ovarian cyst Past Surgical History: Cholecystectomy Alcohol Use: Rarely Drug Use: Marijuana Adult General Chief Complaint Chief Complaint: ABDOMINAL PAIN HPI HPI Patient is a 38 year old female with a history of uncontrolled hypertension, depression, who presents to the ED today complaining of 5 out of 10 right lower quadrant abdominal pain that has been going on for 3 weeks. Patient states around November 11 she was diagnosed with a right ovarian mass, she states she is not able to follow up with any [employer] UP OPERATOR because they need insurance or some sort of payment which she doesn't have. She states she was seen in the ED yesterday, she was sent home on hydrocodone. She states she would like something for pain in the ED today. She states she's also been vomiting. Denies any fever. She states nothing specifically exacerbates her pain but hydrocodone does help relieve some moving. Review of Systems Review of Systems Constitutional: Denies fever or chills [] Eyes: Denies change in visual acuity, redness, or eye pain [] HENT: Denies nasal congestion or sore throat [] Respiratory: Denies cough or shortness of breath [] Cardiovascular: No additional information not addressed in HPI [] GI: Reports right lower quadrant abdominal pain and vomiting, denies bloody stools or diarrhea [] : Denies dysuria or hematuria [] Musculoskeletal: Denies back pain or joint pain [] Integument: Denies rash or skin lesions [] Neurologic: Denies headache, focal weakness or sensory changes [] All other systems were reviewed and found to be within normal limits, except as documented in this note. Current Medications Current Medications Current Medications Medications (Trade) Dose Ordered Sig/[facility] Start Time Stop Time Status Last Admin Dose Admin Ketorolac Tromethamine (Toradol Im) 60 mg 1X ONCE 12/02/18 17:00 12/02/18 17:01 DC 12/02/18 18:02 60 MG Morphine Sulfate (Morphine Sulfate) 5 mg 1X ONCE 12/02/18 17:00 12/02/18 17:01 DC 12/02/18 18:02 5 MG Ondansetron HCl (Zofran Odt) 4 mg 1X ONCE 12/02/18 17:00 12/02/18 17:01 DC 12/02/18 18:02 4 MG Allergies Allergies Allergies Coded Allergies Type Severity Reaction Last Updated Verified tetanus and diphtheria toxoids Allergy Intermediate Swelling. 10/08/16 Yes Physical Exam Physical Exam Constitutional: Well developed, well nourished, no acute distress, non-toxic appearance. [] HENT: Normocephalic, atraumatic, bilateral external ears normal, oropharynx moist, no oral exudates, nose normal. [] Eyes: PERRLA, EOMI, conjunctiva normal, no discharge. [] Neck: Normal range of motion, no tenderness, supple, no stridor. [] Cardiovascular:Heart rate regular rhythm, no murmur [] Lungs & Thorax: Bilateral breath sounds clear to auscultation [] Abdomen: Bowel sounds normal, soft, tenderness on palpation of the right lower quadrant with negative psoas sign, negative obturator sign, negative Rovsing sign, no masses, no pulsatile masses. [] Skin: Warm, dry, no erythema, no rash. [] Back: No tenderness, no CVA tenderness. [] Extremities: No tenderness, no cyanosis, no clubbing, ROM intact, no edema. [] Neurologic: Alert and oriented X 3, normal motor function, normal sensory function, no focal deficits noted. [] Psychologic: Affect normal, judgement normal, mood normal. [] Current Patient Data Vital Signs Vital Signs Date Time Temp Pulse Resp B/P (MAP) Pulse Ox O2 Delivery O2 Flow Rate FiO2 12/02/18 19:02 16 96 Room Air 12/02/18 16:33 98.1 71 198/108 (138) 98.1 Lab Values Laboratory Tests Test 12/02/18 16:28 POC Urine HCG, Qualitative Hcg negative (Negative) EKG EKG [] Radiology/Procedures Radiology/Procedures [] Course & Med Decision Making Course & Med Decision Making Pertinent Labs and Imaging studies reviewed. (See chart for details) This is a 38-year-old male patient who presents to the ED today with ongoing right lower quadrant abdominal pain from an ovarian mass she was diagnosed November 11, 2018 with. She was seen in the ED yesterday, had another ultrasound done which showed a large ovarian mass. She is not able to follow up with an [employer] UP OPERATOR due to finances as well as medical insurance. She was sent home yesterday with hydrocodone. She is given pain relief in the ED and discharged to home today. Encouraged her to try and follow-up with her [employer] M[employer]INE SET UP OPERATOR and arrange some payment plan so they can take care of this ovarian mass. She'll be sent home with Zofran. [place] Disclaimer Allen Disclaimer This electronic medical record was generated, in whole or in part, using a voice recognition dictation system. Departure Departure Impression: Primary Impression: Right lower quadrant pain Additional Impressions: Ovarian mass, right Intractable nausea and vomiting Disposition: HOME, SELF-CARE Condition: STABLE Referrals: NO PCP (PCP) JUDITH SNOW MD follow up as soon as you can Patient Instructions: Ovarian Cyst Additional Instructions: You were evaluated in the emergency room for ongoing right lower quadrant abdominal pain from an ovarian mass. Try and follow-up with an [employer] SET UP OPERATOR and arr john a payment plan so they can take care of this mass. Scripts Ondansetron (ONDANSETRON ODT) 4 Mg Tab.rapdis 1 TAB PO PRN Q6-8HRS, #16 TAB Prov: GEO CRUZ APRN 12/02/18 Diclofenac Potassium (DICLOFENAC POTASSIUM) 50 Mg Tablet 1 TAB PO BID, #30 TAB 0 Refills Prov: GOE CRUZ APRN 12/02/18 Problem Qualifiers Additional Impressions: Intractable nausea and vomiting Vomiting type: unspecified Qualified Codes: R11.2 - Nausea with vomiting, unspecified GEO CRUZ APRN Dec 02, 2018 19:24
[2018-12-02] MEDS ORDERED: DICL50TA2 PO (19:27)
[2018-12-02] MEDS ORDERED: ONDA4TAB12 PO (19:27)
[2018-12-02 19:35] VITALS: BP 188/95
== END 2018-12-02 19:35 | disposition home or self-care (01) ==
LOC: ER 16:11
DX: N83.9 Noninflammatory disorder of ovary, fallopian tube and broad ligament, unspecified (principal); R10.31 Right lower quadrant pain; R11.2 Nausea with vomiting, unspecified; I10 Essential (primary) hypertension; Z90.49 Acquired absence of other specified parts of digestive tract; Z88.7 Allergy status to serum and vaccine
CPT/HCPCS: 81025; 96372; 99284; J1885; J2270; Q0162

== ENCOUNTER 2019-11-26 13:07 | Emergency (ER) | payer SELFPAY ==
[~2019-11-26] VITALS: Ht 160 cm; Wt 84.0 kg
[~2019-11-26 13:07] MED LIST changes: +DICL50TA2 PO; +ONDA4TAB12 PO
--- NOTE | 2019-11-26 13:56 | PHYS DOC ---
Past Medical History Past Medical History: Depression, Hypertension, Other Additional Past Medical Histor: ovarian cyst Past Surgical History: Cholecystectomy Smoking Status: Current Every Day Smoker Alcohol Use: Rarely Drug Use: Marijuana General Adult EDM: Chief Complaint: ABDOMINAL PAIN HPI: HPI: Patient is a 39 year old female who presents with awoke this morning with a golf ball sized [place] to right lower side of abdomen and right upper quadrant tenderness and at times she states that sharp. She states she took ibuprofen this morning at 11:00. She rates her pain a 4 out of 10. She denies injury or doing any heavy lifting or anything abnormal. Patient's medical history consist of ovarian cyst, cholecystectomy, depression, hypertension, every day smoker. Patient denies nausea, vomiting, diarrhea, cough, abdominal trauma, chest pain, shortness of air, fever, flank pain, dysuria. She states nothing makes the pain worse or better. Review of Systems: Review of Systems: Constitutional: Denies fever or chills. [] Eyes: Denies change in visual acuity. [] HENT: Denies nasal congestion or sore throat. [] Respiratory: Denies cough or shortness of breath. [] Cardiovascular: Denies chest pain or edema. [] GI: Right upper quadrant abdominal pain, denies nausea, vomiting, bloody stools or diarrhea. [] : Denies dysuria. [] Musculoskeletal: Denies back pain or joint pain. [] Integument: Denies rash. Bruising to right lower abdomen [] Neurologic: Denies headache, focal weakness or sensory changes. [] Endocrine: Denies polyuria or polydipsia. [] Lymphatic: Denies swollen glands. [] Psychiatric: Denies depression or anxiety. [] Heart Score: Risk Factors: Risk Factors: DM, Current or recent (<one month) smoker, HTN, HLP, family history of CAD, obesity. Risk Scores: Score 0 - 3: 2.5% MACE over next 6 weeks - Discharge Home Score 4 - 6: 20.3% MACE over next 6 weeks - Admit for Clinical Observation Score 7 - 10: 72.7% MACE over next 6 weeks - Early Invasive Strategies Allergies: Allergies: Allergies Coded Allergies Type Severity Reaction Last Updated Verified tetanus and diphtheria toxoids Allergy Intermediate Swelling. 10/08/16 Yes Physical Exam: PE: Constitutional: Well developed, well nourished, no acute distress, non-toxic appearance. [] HENT: Normocephalic, atraumatic, bilateral external ears normal, oropharynx moist, no oral exudates, nose normal. [] Eyes: PERRLA, EOMI, conjunctiva normal, no discharge. [] Neck: Normal range of motion, no tenderness, supple, no stridor. [] Cardiovascular:Heart rate regular rhythm, no murmur [] Lungs & Thorax: Bilateral breath sounds clear to auscultation [] Abdomen: Bowel sounds normal, soft, right upper quadrant tenderness, no masses, no pulsatile masses. [] Skin: Warm, dry, no erythema, no rash. Bruising to right lower abdomen. [] Back: No tenderness, no CVA tenderness. [] Extremities: No tenderness, no cyanosis, no clubbing, ROM intact, no edema. [] Neurologic: Alert and oriented X 3, normal motor function, normal sensory funct ion, no focal deficits noted. [] Psychologic: Affect normal, judgement normal, mood normal. [] EKG: EKG: [] Radiology/Procedures: Radiology/Procedures: [] Impression: [facility] [address] [place] [address] IMAGING REPORT Signed PATIENT: DANISHA HOFFMAN DACCOUNT: [id number] : 1980 LOCATION: ER AGE: 39 SEX: F EXAM STATUS: PRE ER ORD. PHYSICIAN: CORBY WILEY APRN REASON: BRUISING TO RIGHT LOWER AND RIGHT UPPER TENDERNESS PROCEDURE: CT ABD PELV W/ IV CONTRST ONLY INDICATION: Reason: BRUISING TO RIGHT LOWER AND RIGHT UPPER TENDERNESS / Spl. Instructions: OMNI 300 INJ 75 MLS / History: COMPARISON: November 11, 2018 TECHNIQUE: Axial CT images obtained through the abdomen and pelvis with contrast. One or more of the following individualized dose reduction techniques were utilized for this examination: 1. Automated exposure control; 2. Adjustment of the mA and/or kV according to patient size; 3. Use of iterative reconstruction technique. FINDINGS: Abdominal aorta is not aneurysmal. No intrahepatic bile duct dilation. Postcholecystectomy changes. No peripancreatic fluid collection. Spleen unremarkable. 19 mm left adrenal nodule is again seen. No hydronephrosis or perirenal hemorrhage. Urinary bladder is partially distended. Repeat demonstration of a mixed density solid and cystic mass anteriorly within the pelvis with maximum axial diameter currently 95 x 89 mm and was previously 142 x 85 mm. Cranial caudal extent is approximately 15 cm on the current exam and was previously 10 cm. No periappendiceal inflammatory changes. No dilated loops of bowel suggest obstruction. Small fat-containing umbilical hernia. There is some subcutaneous edema to the fat on the right anteriorly. IMPRESSION: * Redemonstration of mixed solid and cystic mass which could be from adnexal origin mass and if an MRI has not been obtained may be helpful to obtain one to better assess. This has a rotated appearance when compared to the prior examination therefore difficult to assess for size change. * Indeterminate left adrenal nodule. * Subcutaneous edema to the anterior abdominal wall. Electronically signed by: Pat Hermosillo MD (11/26/2019 3:37 PM) [id number] DICTATED and SIGNED BY: PAT HERMOSILLO MD DATE: 11/26/19 1537 [facility] [address] [place] [address] IMAGING REPORT Signed PATIENT: DANISHA HOFFMAN DACCOUNT: [id number] : 1980 LOCATION: ER AGE: 39 SEX: F EXAM STATUS: REG ER ORD. PHYSICIAN: CORBY WILEY APRN REASON: mass in pelvis PROCEDURE: PELVIS COMPLETE PELVIS COMPLETE History: Reason: mass in pelvis / Spl. Instructions: / History: Comparison: Ultrasound December 01, 2018. CT November 26, 2019. Technique: Grayscale and color Doppler imaging of the pelvis was performed using transabdominal technique. Findings: The uterus measures 8.0 x 5.3 x 3.2 cm. Degraded evaluation due to transabdominal technique. Complex cystic and solid right adnexal mass measures 10.2 x 12.9 x 8.8 cm, mildly increased compared to prior ultrasound 2019. Bilateral ovaries not identified due to overlying structures. Right lower quadrant subcutaneous tissues were evaluated. No fluid collection or mass. IMPRESSION: 1. Solid heterogeneous right adnexal mass, mildly increased in size compared to ultrasound in 2019. MRI can better evaluate as clinically warranted. Electronically signed by: Quan Cunningham DO (11/26/2019 5:10 PM) [id number] DICTATED and SIGNED BY: QUAN CUNNINGHAM DO DATE: 11/26/19 1710 Course & Med Decision Making: Course & Med Decision Making Pertinent Labs and Imaging studies reviewed. (See chart for details) Alert and oriented x4. Ambulatory with a steady gait. Speaks in full complete sentences. Skin pink warm and dry. Abdomen is soft but tender to the right upper abdomen. No extremity edema. She states she takes no medications daily. I have spoke to Dr Fuentes who states the patient needs to make a appointment immediately for further evaluation. Dr Fuentes states the patient does not need to be admitted. [] Dragon Disclaimer: Dragon Disclaimer: This electronic medical record was generated, in whole or in part, using a voice recognition dictation system. Departure Departure Impression: Primary Impression: Ovarian mass, right Additional Impression: Abdominal contusion Qualified Codes: S30.1XXA - Contusion of abdominal wall, initial encounter Disposition: 01 HOME, SELF-CARE Condition: STABLE Referrals: NO PCP (PCP) MRAY SANDERS MD Patient Instructions: Medical Screening Exam Additional Instructions: Follow up with [facility] [employer] [facility] as soon as possible. Justicifation of Admission Dx: Justifications for Admission: Justification of Admission Dx: N/A CORBY WILEY APRN Nov 26, 2019 13:56
[2019-11-26] MEDS ORDERED: IV NORMAL SALINE 1000ML BAG 1,000 ML IV ONE (14:00)
[2019-11-26 14:04] LABS: BILIRUBIN,URINE NEGATIVE (NEG); CLARITY,URINE CLEAR; COLOR,URINE YELLOW; NITRITE,URINE NEGATIVE (NEG); PH,URINE 5.5 (<5.0-8.0); PROTEIN,URINE NEGATIVE (NEG-TRACE); UROBILINOGEN,URINE 0.2 mg/dL (0.2 mg/dL)
[2019-11-26 14:08] LABS: BACTERIA,URINE FEW /HPF (0-FEW); RBC,URINE OCC /HPF (0-2); WBC,URINE OCC /HPF (0-4)
[2019-11-26 14:09] LABS: SQUAMOUS EPITHELIAL CELL,UR FEW /LPF
[2019-11-26 14:13] LABS: BARBITURATES NEG (NEG); BENZODIAZEPINES NEG (NEG); CANNABINOIDS POS (NEG); COCAINE NEG (NEG); METHADONE NEG (NEG); OPIATES NEG (NEG); PHENCYCLIDINE NEG (NEG)
[2019-11-26 14:15] LABS: AMPHETAMINE/METHAMPHETAMINE NEG (NEG)
[2019-11-26 14:25] LABS: BASO # 0.1 x10^3/uL (0.0-0.2); BASO % 1 % (0-3); EOS # 0.1 x10^3/uL (0.0-0.7); EOS % 2 % (0-3); HEMATOCRIT 37.2 % (36.0-47.0); HEMOGLOBIN 12.7 g/dL (12.0-15.5); LYMPH # 1.6 x10^3/uL (1.0-4.8); LYMPH % 20 % (24-48); MEAN CORPUSCULAR HEMOGLOBIN 31 pg (25-35); MEAN CORPUSCULAR HGB CONC 34 g/dL (31-37); MEAN CORPUSCULAR VOLUME 89 fL (79-100); MONO # 0.5 x10^3/uL (0.0-1.1); MONO % 6 % (0-9); NEUT # 5.7 x10^3/uL (1.8-7.7); NEUT % 71 % (31-73); PLATELET COUNT 293 x10^3/uL (140-400); RED BLOOD COUNT 4.17 x10^6/uL (3.50-5.40)
[2019-11-26 14:36] LABS: CREATININE 0.8 mg/dL (0.6-1.0); GFR 80.7; PROTHROMBIN TIME PATIENT 12.4 SEC (11.7-14.0)
[2019-11-26 14:43] LABS: ALBUMIN 3.8 g/dL (3.4-5.0); ALBUMIN/GLOBULIN RATIO 1.4 (1.0-1.7); TOTAL BILIRUBIN 0.3 mg/dL (0.2-1.0); TOTAL PROTEIN 6.6 g/dL (6.4-8.2)
[2019-11-26] MEDS ORDERED: IOHEXOL 300 MG/ML 100ML VIAL. IV ONE (14:45)
[2019-11-26 14:51] LABS: U PREG PATIENT NEGATIVE (NEG)
[2019-11-26] MEDS ORDERED: CONTRAST GIVEN. MC PRN (15:00)
--- NOTE | 2019-11-26 15:40 | RAD ---
INDICATION: Reason: BRUISING TO RIGHT LOWER AND RIGHT UPPER TENDERNESS / Spl. Instructions: OMNI 300 INJ 75 MLS / History: COMPARISON: November 11, 2018 TECHNIQUE: Axial CT images obtained through the abdomen and pelvis with contrast. One or more of the following individualized dose reduction techniques were utilized for this examination: 1. Automated exposure control; 2. Adjustment of the mA and/or kV according to patient size; 3. Use of iterative reconstruction technique. FINDINGS: Abdominal aorta is not aneurysmal. No intrahepatic bile duct dilation. Postcholecystectomy changes. No peripancreatic fluid collection. Spleen unremarkable. 19 mm left adrenal nodule is again seen. No hydronephrosis or perirenal hemorrhage. Urinary bladder is partially distended. Repeat demonstration of a mixed density solid and cystic mass anteriorly within the pelvis with maximum axial diameter currently 95 x 89 mm and was previously 142 x 85 mm. Cranial caudal extent is approximately 15 cm on the current exam and was previously 10 cm. No periappendiceal inflammatory changes. No dilated loops of bowel suggest obstruction. Small fat-containing umbilical hernia. There is some subcutaneous edema to the fat on the right anteriorly. IMPRESSION: * Redemonstration of mixed solid and cystic mass which could be from adnexal origin mass and if an MRI has not been obtained may be helpful to obtain one to better assess. This has a rotated appearance when compared to the prior examination therefore difficult to assess for size change. * Indeterminate left adrenal nodule. * Subcutaneous edema to the anterior abdominal wall. Electronically signed by: Charles Weiss MD (11/26/2019 3:37 PM) [id number]
[2019-11-26 16:38] VITALS: BP 185/94
--- NOTE | 2019-11-26 17:13 | RAD ---
PELVIS COMPLETE History: Reason: mass in pelvis / Spl. Instructions: / History: Comparison: Ultrasound December 01, 2018. CT November 26, 2019. Technique: Grayscale and color Doppler imaging of the pelvis was performed using transabdominal technique. Findings: The uterus measures 8.0 x 5.3 x 3.2 cm. Degraded evaluation due to transabdominal technique. Complex cystic and solid right adnexal mass measures 10.2 x 12.9 x 8.8 cm, mildly increased compared to prior ultrasound 2019. Bilateral ovaries not identified due to overlying structures. Right lower quadrant subcutaneous tissues were evaluated. No fluid collection or mass. IMPRESSION: 1. Solid heterogeneous right adnexal mass, mildly increased in size compared to ultrasound in 2019. MRI can better evaluate as clinically warranted. Electronically signed by: Quan Cunningham DO (11/26/2019 5:10 PM) [id number]
== END 2019-11-26 18:40 | disposition home or self-care (01) ==
LOC: ER 13:07
DX: S30.1XXA Contusion of abdominal wall, initial encounter (principal); N83.9 Noninflammatory disorder of ovary, fallopian tube and broad ligament, unspecified; R10.11 Right upper quadrant pain; I10 Essential (primary) hypertension; F32.9 Major depressive disorder, single episode, unspecified; F17.200 Nicotine dependence, unspecified, uncomplicated; F12.90 Cannabis use, unspecified, uncomplicated; Z90.49 Acquired absence of other specified parts of digestive tract; Z88.7 Allergy status to serum and vaccine; Y29.XXXA Contact with blunt object, undetermined intent, initial encounter; Y93.89 Activity, other specified; Y92.89 Other specified places as the place of occurrence of the external cause; Y99.8 Other external cause status
CPT/HCPCS: 36415; 74177; 76856; 80053; 80307; 81001; 81025; 83690; 85025; 85610; 96360; 99285; J7030; Q9967